=== PATIENT | male | born 1990 | race Caucasian/White ===

== ENCOUNTER 2020-01-21 18:50 | Emergency (ER) | payer BC, SELFPAY ==
[2020-01-21 19:02] VITALS: BP 132/81; PULSE 112; RESP 20; TEMP 36.7; O2SAT 99
--- NOTE | 2020-01-21 19:12 | ED.GENADULT ---
HPI - General Adult General Chief complaint: Ear Stated complaint: Ear pain in both ears Time Seen by Provider: 01/21/20 19:12 Source: patient and RN notes reviewed Mode of arrival: ambulatory Limitations: no limitations History of Present Illness HPI narrative: 29-year-old male presents with complaints of bilateral ear tenderness, itching, and drainage and sore throat for the past 4 days. Ibuprofen, last today @ 17:30 with some relief. Denies swimming or getting water into ear. Denies trouble hearing. PND, rhinorrhea, and congestion. Sore throat bilateral. Hurts to swallow. No voice changes. No drooling, neck or throat swelling. No high fevers or chills. Denies injury to the ear. No nasal drainage and congestion. Denies nausea, vomiting, tinnitus, and dizziness. Remains active. Some parts of this dictation were generated by voice recognition software and may contain typographical and/or grammatical inaccuracies. Related Data Allergies Allergy/AdvReac Type Severity Reaction Status Date / Time No Known Allergies Allergy Verified 01/21/20 19:05 Review of Systems Review of Systems: Narrative: CONSTITUTIONAL: Denies fever, chills, sweats. EYES: Denies visual changes, redness, discharge. ENT: Complains of rhinorrhea, congestion, sore throat otalgia, bilateral ear pain, itching, drainage feeling. CARDIOVASCULAR: Denies chest pain, palpitations, edema. RESPIRATORY: Denies dyspnea, wheezing, cough. GASTROINTESTINAL: Denies abdominal pain, nausea, vomiting, diarrhea. GENITOURINARY: Denies dysuria, hematuria, abnormal discharge. SKIN: Denies rash or itching. MUSCULOSKELETAL: Denies acute back pain, joint pain, or myalgia. NEUROLOGIC: Denies numbness or focal weakness. PSYCHIATRIC: Denies anxiety or depression. All systems reviewed & are unremarkable except as noted in HPI and below. [facility] Past Medical History Medical History (Updated 01/22/20 @ 00:00 by Nazanin Vásquez) Anxiety Kidney stone Surgical History Surgical History (Updated 01/21/20 @ 19:19 by BRIDGETTE Villaseñor) No significant past surgical history Family History Family History (Updated 01/21/20 @ 19:20 by BRIDGETTE Villaseñor) Mother Depression Social History Social History (Updated 01/21/20 @ 19:21 by BRIDGETTE Villaseñor) Smoking packs per day: 0.75 Smoking cigarettes per day: 15.0 Years smoked: 15 Smoking pack-years: 11.25 Smoking status: Current every day smoker Tobacco type: cigarettes Second hand tobacco smoke exposure: Yes Alcohol intake: never Substance use: current Substance use type: marijuana Living arrangements: with family Occupation/Education: unemployed Gender identity (if verbalized by the patient): Male Comments At time of signature, I have reviewed and agree with nursing past medical, surgical, social, and family history. Please see nursing chart for further information. There is no relevant family history pertinent to the presenting complaint. Exam Narrative: Exam Narrative: GENERAL: This is a well-nourished, well-developed patient, in no apparent distress. Talks in full sentences and ambulates with steady gait without dyspnea HEAD: normocephalic, atraumatic. EYES: PERRL. Sclera clear/white. Vision is grossly intact. EARS: Pinna is normal shape and contour. RT ear with moderate swollen canal with moderate yellow purulent discharge and tenderness with manipulation. LT TM pearly winn with good cone of light, no erythema or suppuration, unable to visualize RT TM due to swelling and drainage. No gross hearing deficit. NOSE: External nose normal with no obvious nasal discharge, nares with mild-moderate redness and enlarge turbinates, left worse. Clear rhinorrhea. THROAT: Mucous membranes moist, posterior pharynx clear. NECK: Neck supple, non-tender without lymphadenopathy, masses or thyromegaly. CARDIOVASCULAR: Regular rate and rhythm without murmurs, gallops, or rubs. RESPIRATORY
[2020-01-21 19:25] VITALS: PULSE 88
== END 2020-01-21 19:30 | disposition home or self-care (01) ==
PROVIDERS: Emergency Provider Nurse Practitioner Family; PCP Internal Medicine
DX: H60.391 Other infective otitis externa, right ear (principal); F17.210 Nicotine dependence, cigarettes, uncomplicated
CPT/HCPCS: 99203; G0463

== ENCOUNTER 2023-02-12 16:59 | Emergency (ER) | payer BC, SELFPAY ==
--- NOTE | ~2023-02-12 | CT_ITS ---
EXAMINATION: CT brain wo con DATE: 02/12/2023 17:52 INDICATION: AMS, hallucinations . TECHNIQUE: Computed tomography (CT) of the head was performed without intravenous contrast. The mA wa s adjusted according to patient size. Iterative reconstruction technique was employed. The dose-lengt h product was 605.33 mGy-cm. COMPARISON: None. FINDINGS: No acute intracranial hemorrhage or extra-axial fluid collection. No hydrocephalus, mass, or herniation. No acute ischemic infarct. Unremarkable dural venous sinus attenuation. No acute osseous abnormality. The aerated spaces are clear. IMPRESSION: No acute intracranial process. Reviewed, dictated and finalized at location K.
[2023-02-12 17:13] VITALS: BP 126/82; PULSE 119; RESP 20; TEMP 37.1; O2SAT 99
[2023-02-12 17:30] LABS: Basophils Percent Auto 0.2 % (0.2-1.2); Eosinophils Percent Auto 0.9 % (0-4.4); Immature Granulocyte Absolute 0.01 K/mm3 (0.00-0.031); Immature Granulocyte Percent A 0.2 % (0-0.5); Lymphocytes Absolute Auto 1.09 K/mm3 (0.9-3.2); Lymphocytes Percent Auto 23.5 % (18.3-44.2); Mean Corpuscular HGB Conc 34.2 g/dl (32-36); Mean Corpuscular Hemoglobin 31.4 pg (26-34); Mean Corpuscular Volume 91.8 fl (80-100); Mean Platelet Volume 9.9 fl (7.4-10.4); Monocytes Absolute Auto 0.5 K/mm3 (0.1-0.6); Monocytes Percent Auto 10.2 % (2.6-8.5); Platelet Count Result 198 k/mm3 (150-375); Red Blood Count 4.14 M/mm3 (4.6-6.20); Red Cell Distribution Width 12.3 % (11.5-14.5); White Blood Count 4.6 K/mm3 (4.5-10.0)
[2023-02-12 17:34] LABS: Appearance Urine Clear (Clear); Bacteria Urine None Seen /hpf; Bilirubin Urine Negative (Negative); Blood Urine Negative (Negative); Color Urine Yellow (Yellow); Glucose Urine UA Negative (Negative); Ketones Urine Negative (Negative); Leukocyte Esterase Ur Negative LEU/UL (Negative); Nitrate Urine Negative (Negative); Non Pathogenic Casts 0-2; Protein Urine 1+ mg/dL (Negative); RBC Urine 0-2 /hpf (0-2); Squamous Epithelial Cell Urine None seen /hpf (Few); WBC Urine 0-5 /hpf; pH Urine 5.5 (5.0-9.0)
[2023-02-12 17:36] LABS: Add Urine Microscopic? YES
--- NOTE | 2023-02-12 17:37 | ED.PSYCH ---
HPI - Psych General Chief Complaint: Psychiatric Symptoms Stated Complaint: psychiatric problems Time Seen by Provider: 02/12/23 17:03 Source: patient and police Mode of arrival: other (PD) Limitations: clinical condition History of Present Illness HPI Narrative: Patient is a 33 y/o male who presents to the ED via PD with report of hallucinations. Per PD, patient was acting erratically at a bus stop and reportedly fighting with inanimate objects. The business intelligence analyst called for PD. Patient reported to PD that the frequencies from the cars that were passing by were telling him to do things. He states he has been hearing voices for the last couple of months. He states he recognizes that the voices are not his own. He states the voices come from over the car frequencies, the rubber meeting the road, or from satellites. He states occasionally the voices are nice and uplifting, other times tell him to harm his children, or if he does not do what they wish, his children will be harmed. Patient does have 2 children that are currently with her mothers. Patient is currently homeless. He states he has been homeless since last March. He states he has had suicidal thoughts in the last 1 month and has thought about jumping off a bridge in [place]. He states he got up to the edge, but was not able to go through with it. He states he has previously been diagnosed with depression and anxiety, but is not currently on any medications. He was last psychiatrically hospitalized in 2010. Patient admits to smoking cigarettes and marijuana, denies other drug or EtOH use. Related Data Home Medications Medication Instructions Recorded Confirmed hydroxyzine HCl 25 mg tablet mg 02/12/23 mirtazapine 15 mg tablet mg 02/12/23 Allergies Allergy/AdvReac Type Severity Reaction Status Date / Time No Known Allergies Allergy Verified 02/12/23 17:25 Review of Systems Review of Systems: CONSTITUTIONAL: Denies fever, chills, or sweats. EYES: Denies visual changes. CARDIOVASCULAR: Denies chest pain. RESPIRATORY: Denies dyspnea. GASTROINTESTINAL: Denies abdominal pain, nausea, vomiting. MUSCULOSKELETAL: Denies back pain, joint pain, or myalgia. NEUROLOGIC: Denies headache, numbness, or weakness. PSYCHIATRIC: See HPI. All systems reviewed & are unremarkable except as noted in HPI and below PMFSH Past Medical History Medical History (Updated 02/13/23 @ 00:01 by Background Daemon) Anxiety Depression Kidney stone Surgical History Surgical History No significant past surgical history Family History Family History Mother Depression Social History Social History Smoking packs per day: 0.75 Smoking cigarettes per day: 15.0 Years smoked: 15 Smoking pack-years: 11.25 Smoking status: Current every day smoker Tobacco type: cigarettes Second hand tobacco smoke exposure: Yes Alcohol intake: never Substance use: current Substance use type: former substance user and methamphetamine Living arrangements: with family Occupation/Education: unemployed Gender identity (if verbalized by the patient): Male Exam Narrative: GENERAL: Mildly unkempt, non-toxic, in no acute distress. HEAD: Normocephalic, atraumatic. NECK: Supple. No adenopathy, no masses. RESPIRATORY: Airway patent, respirations nonlabored. Clear to auscultation bilaterally, no rales, rhonchi, wheezing. CARDIOVASCULAR: Tachycardic with regular rhythm without murmurs, rubs, or gallops. Peripheral pulses 2+ and equal bilaterally. ABDOMINAL: Soft, nontender, nondistended, no hepatosplenomegaly. Normoactive BS. MUSCULOSKELETAL: Moves all extremities. Strength/ROM intact without gross deformities. SKIN: Warm, dry, normal color. No rashes. NEURO: A&O X3. Speech clear. Cranial nerves II-XII grossly in
[2023-02-12 17:42] LABS: Alanine Aminotransferase 32 U/L (6-50); Albumin Level 4.5 g/dL (3.5-5.1); Alkaline Phosphatase 69 U/L (38-126); Anion Gap 5 mmol/L (8-16); Aspartate Amino Transferase 47 U/L (17-59); Bilirubin,Total 0.5 mg/dL (0.2-1.3); Blood Urea Nitrogen 18 mg/dL (9-20); Calcium 8.9 mg/dL (8.4-10.2); Carbon Dioxide 30 mmol/L (22-30); Chloride 105 mmol/L (98-107); Estimated CRCL calculation 121 ml/min; Estimated Glomerular Filt Rate > 60; Glucose 86 mg/dL (65-110); Potassium 4.3 mmol/L (3.4-5.0); Sodium 140 mmol/L (137-145)
[2023-02-12 17:43] LABS: Acetaminophen < 10 ug/mL (10-30); Ethanol < 10 mg/dL (<10); Salicylate < 1.0 mg/dL (2-20)
[2023-02-12 17:47] LABS: Amphetamine Screen Urine Negative (Negative); Barbiturate Screen Urine Negative (Negative); Benzodiazepines Screen Urine Negative (Negative); Cannabinoid Screen Urine Positive (Negative); Cocaine Screen Urine Negative (Negative); Methadone Screen Urine Negative (Negative); Opiate Screen Urine Negative (Negative); Phencyclidine Screen Urine Negative (Negative)
[2023-02-12 18:15] LABS: SARS-CoV-2 RNA PCR Negative
--- NOTE | 2023-02-12 18:22 | PC.NURSE ---
crisis called to evaluate patient
--- NOTE | 2023-02-12 20:13 | PC.NURSE ---
crisis arrived at 1920 to evaluate patient.
--- NOTE | 2023-02-12 20:18 | PC.NURSE ---
spoke with crisis who have decided that they are going to write up a safety plan for the patient.
[2023-02-12] MEDS: HYDROGEN PEROXIDE 3% SOLN(*SP) 473 ML BOTTLE (20:43)
[2023-02-12 20:56] VITALS: BP 124/68; PULSE 80; RESP 14; O2SAT 97
== END 2023-02-12 20:57 | disposition home or self-care (01) ==
PROVIDERS: Emergency Provider Physician Assistant; PCP Internal Medicine
DX: R44.0 Auditory hallucinations (principal); Z59.00 Homelessness unspecified; F41.9 Anxiety disorder, unspecified; F32.A Depression, unspecified; F17.210 Nicotine dependence, cigarettes, uncomplicated; Z20.822 Contact with and (suspected) exposure to COVID-19
CPT/HCPCS: 36415; 70450; 80053; 80307; 81001; 84443; 85025; 99284; A9270; U0003; U0005

== ENCOUNTER 2023-02-13 05:42 | Emergency (ER) | payer BC, SELFPAY ==
[2023-02-13 05:45] VITALS: BP 129/73; PULSE 100; RESP 18; TEMP 36.2; O2SAT 99
[2023-02-13 05:50] VITALS: BP 145/81; PULSE 94; RESP 17; TEMP 36.6; O2SAT 97
[2023-02-13 05:54] VITALS: BP 145/81; PULSE 67; RESP 19; O2SAT 96
[2023-02-13 06:01] VITALS: BP 137/72; PULSE 72; RESP 19; O2SAT 97
[2023-02-13 06:31] VITALS: BP 138/85; PULSE 78; RESP 18; O2SAT 98
--- NOTE | 2023-02-13 07:52 | ED.GENADULT ---
HPI - General Adult General Chief complaint: Extremity Problem,Nontraumatic Stated complaint: foot pain Time Seen by Provider: 02/13/23 07:02 History of Present Illness HPI narrative: Patient is a 33-year-old male who presents ER with complaint of left foot discomfort and rash. Ongoing for years but worsening over the last 6 months. Has not had any medication. Reports she is applied peroxide without improvement. No fevers or chills or sweats. No known injury or trauma. Patient recently seen in ER for mental health evaluation. No complaints at this time. Related Data Home Medications Medication Instructions Recorded Confirmed hydroxyzine HCl 25 mg tablet mg 02/12/23 mirtazapine 15 mg tablet mg 02/12/23 Allergies Allergy/AdvReac Type Severity Reaction Status Date / Time No Known Allergies Allergy Verified 02/13/23 05:54 Review of Systems Constitutional: Constitutional: Denies chills and Denies fever(s) Integumentary/Breasts: Skin/Breast: Reports pruritus, Reports erythema and Reports rash Psychiatric: Psychiatric: Denies homicidal ideation and Denies suicidal ideation [facility] Past Medical History Medical History (Updated 02/13/23 @ 07:54 by Grabiel Dillard MD) Anxiety Depression Kidney stone Surgical History Surgical History No significant past surgical history Family History Family History Mother Depression Social History Social History Smoking packs per day: 0.75 Smoking cigarettes per day: 15.0 Years smoked: 15 Smoking pack-years: 11.25 Smoking status: Current every day smoker Tobacco type: cigarettes Second hand tobacco smoke exposure: Yes Alcohol intake: never Substance use: current Substance use type: former substance user and methamphetamine Living arrangements: with family Occupation/Education: unemployed Gender identity (if verbalized by the patient): Male Exam Narrative: GENERAL: Well-appearing, well-nourished, and in no acute distress. HEAD: Normocephalic, atraumatic. ENT: Mucous membranes moist. CHEST: Clear to auscultation. No respiratory distress. HEART: Regular rate and rhythm. Normal peripheral pulses. EXTREMITIES: Normal range of motion. No edema. SKIN: Warm, dry. Left foot with mild redness and sloughing of skin over the lateral aspect of the foot as well as the toes and medial aspect of the foot. Is not hot. Does not represent cellulitis. Seems consistent with tinea infection. Over the lateral foot there is a bit of a fissure from chronic infection that is healing. No drainage. Small abrasion right buttock less than 1 cm in diameter. NEURO: Alert and oriented x3. PSYCH: Normal mood and affect. Course Course Emergency Course: Discussed diagnosis and treatment plan with patient who verbalized understanding. Also discussed results of the foot x-ray. Lastly I discussed patient's previous visit for mental health and the resources he received. She reports she has had a good spot at this time. He does not require homeless resources either. Vital Signs Vital signs: Vital Signs Temperature 97.2 F L 02/13/23 05:45 Pulse Rate 100 02/13/23 05:45 Respiratory Rate 18 02/13/23 05:45 Blood Pressure 129/73 02/13/23 05:45 Pulse Oximetry 99 02/13/23 05:45 Oxygen Delivery Room Air 02/13/23 05:45 Temperature 97.9 F 02/13/23 05:50 Pulse Rate 78 02/13/23 06:31 Respiratory Rate 18 02/13/23 06:31 Blood Pressure 138/85 02/13/23 06:31 Pulse Oximetry 98 02/13/23 06:31 Oxygen Delivery Room Air 02/13/23 05:45 Medical Decision Making Vital Signs Vital Signs: Vital Signs Temperature 97.2 F L 02/13/23 05:45 Pulse Rate 100 02/13/23 05:45 Respiratory Rate 18 02/13/23 05:45 Blood Pressure 129/73 02/13/23 05:45 Pu
== END 2023-02-13 06:31 | disposition home or self-care (01) ==
PROVIDERS: Emergency Provider Emergency Medicine; PCP Internal Medicine
DX: B35.3 Tinea pedis (principal); F41.9 Anxiety disorder, unspecified; F32.A Depression, unspecified; F17.210 Nicotine dependence, cigarettes, uncomplicated; Z87.442 Personal history of urinary calculi
CPT/HCPCS: 73630; 99283

== ENCOUNTER 2023-09-27 10:06 | Emergency (ER) | payer BC, SELFPAY ==
[2023-09-27 10:26] VITALS: BP 115/77; PULSE 93; RESP 16; TEMP 36.6; O2SAT 99
--- NOTE | 2023-09-27 10:59 | ED.EYEPROB ---
HPI - Eye Problem General Chief complaint: Eye Problems Stated complaint: eye problem Time Seen by Provider: 09/27/23 10:44 History of Present Illness HPI Narrative: 33-year-old male who presented to the emergency department for evaluation of red and the left lateral eye. Patient states he is taking oxycodone has been having some issues with constipation. Patient states last night he was bearing down hard for a bowel movement when he noticed the redness in the eye. Patient denies any associated nausea vomiting or abdominal pain. Patient denies any change in vision. Patient is not on any blood thinners. Related Data Home Medications Medication Instructions Recorded Confirmed mirtazapine 15 mg tablet mg 02/12/23 Remeron 09/27/23 09/27/23 buprenorphine 8 mg-naloxone 2 mg film 09/27/23 sublingual film olanzapine 10 mg tablet mg 09/27/23 Allergies Allergy/AdvReac Type Severity Reaction Status Date / Time No Known Allergies Allergy Verified 09/27/23 10:07 Review of Systems Review of Systems: All systems reviewed & are unremarkable except as noted in HPI and below PMFSH Past Medical History Medical History (Updated 09/28/23 @ 00:00 by Nazanin Vásquez) Anxiety Depression Kidney stone Surgical History Surgical History No significant past surgical history Family History Family History Mother Depression Social History Social History Smoking packs per day: 0.75 Smoking cigarettes per day: 15.0 Years smoked: 15 Smoking pack-years: 11.25 Smoking status: Current every day smoker Tobacco type: cigarettes Second hand tobacco smoke exposure: Yes Alcohol intake: never Substance use: current Substance use type: former substance user and methamphetamine Living arrangements: with family Occupation/Education: unemployed Gender identity (if verbalized by the patient): Male Exam Narrative: APPEARANCE: Well appearing, no pain, no distress, well-nourished. HEAD: normocephalic, atraumatic. EYES: subconjunctival hemorrhage on the left lateral eye, normal fundic exam, normal visual cochran NOSE: Normal no drainage EARS:TMS clear with good light reflex. THROAT: Pharynx clear, no exudate. NECK: Supple. No adenopathy, no masses. RESPIRATORY: Airway patent, respirations nonlabored. Clear to auscultation bilaterally, no rales, rhonchi, wheezing. CARDIOVASCULAR: Regular rate and rhythm without murmurs rubs or gallops. ABDOMINAL: Soft, nontender, nondistended, normal bowel sounds MUSCULOSKELETAL: Moves all extremities. Strength/ROM intact, No edema, No calf tenderness. NEURO: Alert. Cranial nerves II through XII intact. Grossly intact SKIN: Warm, dry. Normal Color Course Course Emergency Course: 33-year-old male with a subconjunctival hemorrhage present in the ED for evaluation. Patient was advised on treatment. All questions concerns were addressed. Vital Signs Vital signs: Vital Signs Temperature 97.8 F 09/27/23 10:26 Pulse Rate 93 09/27/23 10:26 Respiratory Rate 16 09/27/23 10:26 Blood Pressure 115/77 09/27/23 10:26 Pulse Oximetry 99 09/27/23 10:26 Oxygen Delivery Room Air 09/27/23 10:26 Temperature 97.8 F 09/27/23 10:26 Pulse Rate 93 09/27/23 10:26 Respiratory Rate 16 09/27/23 10:26 Blood Pressure 115/77 09/27/23 10:26 Pulse Oximetry 99 09/27/23 10:26 Oxygen Delivery Room Air 09/27/23 10:26 MDM - Eye Problem Differential Diagnosis Differential diagnosis: Likely corneal abrasion, conjunctivitis, acute iritis, hyphema, periorbital cellulitis, subconjunctival hemorrhage, corneal ulcer and ruptured globe Discharge Plan Discharge Clinical Impression: Subconjunctival hemorrhage, Constipation Patient Disposition: Home, Self-Care Cond
[2023-09-27] MEDS: polyethylene glycoL 3350 17 GM POWD.PACK PO (11:20)
== END 2023-09-27 11:24 | disposition home or self-care (01) ==
PROVIDERS: Emergency Provider Emergency Medicine; PCP Internal Medicine
DX: H11.32 Conjunctival hemorrhage, left eye (principal); K59.00 Constipation, unspecified; F41.9 Anxiety disorder, unspecified; F32.A Depression, unspecified; F17.210 Nicotine dependence, cigarettes, uncomplicated; Z87.440 Personal history of urinary (tract) infections
CPT/HCPCS: 99283

== ENCOUNTER 2023-10-14 19:46 | Emergency (ER) | payer BC, SELFPAY ==
[2023-10-14 20:37] VITALS: BP 148/88; PULSE 108; RESP 16; TEMP 36.3; O2SAT 99
--- NOTE | 2023-10-14 21:45 | ED.GENADULT ---
HPI - General Adult General Chief complaint: Unspecified Stated complaint: constipation Time Seen by Provider: 10/14/23 21:25 Source: patient Mode of arrival: ambulatory Limitations: no limitations History of Present Illness HPI narrative: This is a 33-year-old male who presents to the ED with chief complaint of constipation x several weeks. reports that this has been a problem ever since starting on Suboxone. He has tried intermittent MiraLax and milk of magnesia with no relief. Reports his last bowel movement was last night in the past a stool the size of his fist that was very hard and compact. Reports a little bit of blood without bowel movement. Denies any bowel movements today. Reports he was straining sore today than popped a vessel in his eyes. Denies nausea, vomiting, fevers, chills, diarrhea, abdominal pain. Related Data Home Medications Medication Instructions Recorded Confirmed mirtazapine 15 mg tablet mg 02/12/23 Remeron 09/27/23 09/27/23 buprenorphine 8 mg-naloxone 2 mg film 09/27/23 sublingual film olanzapine 10 mg tablet mg 09/27/23 Allergies Allergy/AdvReac Type Severity Reaction Status Date / Time No Known Allergies Allergy Verified 09/27/23 10:07 Review of Systems Review of Systems: All systems as dictated in [facility] Past Medical History Medical History (Updated 10/15/23 @ 00:00 by Nazanin Vásquez) Anxiety Depression Kidney stone Surgical History Surgical History No significant past surgical history Family History Family History Mother Depression Social History Social History Smoking packs per day: 0.75 Smoking cigarettes per day: 15.0 Years smoked: 15 Smoking pack-years: 11.25 Smoking status: Current every day smoker Tobacco type: cigarettes Second hand tobacco smoke exposure: Yes Alcohol intake: never Substance use: current Substance use type: former substance user and methamphetamine Living arrangements: with family Occupation/Education: unemployed Gender identity (if verbalized by the patient): Male Exam Narrative: GENERAL: Well-appearing, well-nourished, and in no acute distress. HEAD: Normocephalic, atraumatic. EYES: PERRLA and EOMI. ENT: Nares clear, no rhinorrhea or epistaxis. Mucous membranes moist. Oropharynx without tonsillar hypertrophy exudate or other lesions. NECK: Supple. No adenopathy or masses. CHEST: No respiratory distress. Clear to auscultation. No wheezes rales or rhonchi HEART: Regular rate and rhythm. No murmur heard. Normal peripheral pulses. ABDOMEN: Soft, nontender, nondistended, normal active bowel sounds. MSK: Normal range of motion. No edema. SKIN: Warm, dry, no rash. NEURO: Alert and oriented x3. No focal deficits. PSYCH: Normal mood and affect. Course Vital Signs Vital signs: Vital Signs Temperature 97.4 F L 10/14/23 20:37 Pulse Rate 108 H 10/14/23 20:37 Respiratory Rate 16 10/14/23 20:37 Blood Pressure 148/88 H 10/14/23 20:37 Pulse Oximetry 99 10/14/23 20:37 Oxygen Delivery Room Air 10/14/23 20:37 Temperature 97.4 F L 10/14/23 20:37 Pulse Rate 64 10/14/23 22:16 Respiratory Rate 15 10/14/23 22:16 Blood Pressure 148/88 H 10/14/23 20:37 Pulse Oximetry 100 10/14/23 22:16 Oxygen Delivery Room Air 10/14/23 20:37 Medical Decision Making MDM Narrative Medical decision making narrative: This is a 33-year-old male who presents to the ED for chief complaint of constipation. He is currently on Suboxone. Vitals are normal. Exam is benign. No evidence of acute abdomen. He is requesting alternative regimen to MiraLax for constipation. He has been straining quite hard and has very infrequent. He reports a little bit of pain in the rectum at times, but
[2023-10-14 22:16] VITALS: PULSE 64; RESP 15; O2SAT 100
== END 2023-10-14 22:19 | disposition home or self-care (01) ==
PROVIDERS: Emergency Provider Physician Assistant; PCP Internal Medicine
DX: K59.00 Constipation, unspecified (principal); F17.210 Nicotine dependence, cigarettes, uncomplicated
CPT/HCPCS: 99283

== ENCOUNTER 2024-04-07 18:35 | Emergency (ER) | payer OTHER, SELFPAY ==
--- NOTE | ~2024-04-07 | CT_ITS ---
EXAMINATION: CT brain wo con DATE: 04/07/2024 20:31 INDICATION: auditory hallucinations, headaches . TECHNIQUE: Computed tomography (CT) of the head was performed without intravenous contrast. The mA wa s adjusted according to patient size. Iterative reconstruction technique was employed. The dose-lengt h product was 681.00 mGy-cm. COMPARISON: 02/12/2023. FINDINGS: No acute intracranial hemorrhage or extra-axial fluid collection. No hydrocephalus, mass, or herniation. No acute ischemic infarct. Unremarkable dural venous sinus attenuation. No acute osseous abnormality. The aerated spaces are clear. IMPRESSION: No acute intracranial process. Reviewed, dictated and finalized at location K.
[2024-04-07 18:36] VITALS: BP 126/60; PULSE 83; RESP 15; TEMP 36.4; O2SAT 99
[2024-04-07 19:51] LABS: Basophils Percent Auto 0.5 % (0.2-1.2); Eosinophils Percent Auto 0.5 % (0-4.4); Hematocrit 39.5 % (42.0-52.0); Hemoglobin 13.8 g/dL (14.0-18.0); Immature Granulocyte Absolute 0.01 K/mm3 (0.00-0.031); Immature Granulocyte Percent A 0.2 % (0-0.5); Lymphocytes Percent Auto 32.9 % (18.3-44.2); Mean Corpuscular HGB Conc 34.9 g/dl (32-36); Mean Corpuscular Hemoglobin 31.3 pg (26-34); Mean Corpuscular Volume 89.6 fl (80-100); Mean Platelet Volume 9.9 fl (7.4-10.4); Monocytes Absolute Auto 0.3 K/mm3 (0.1-0.6); Monocytes Percent Auto 7.3 % (2.6-8.5); Neutrophils Absolute Auto 2.5 K/mm3 (1.3-6.7); Neutrophils Percent Auto 58.6 % (45.5-73.1); Platelet Count Result 181 k/mm3 (150-375); Red Blood Count 4.41 M/mm3 (4.6-6.20); Red Cell Distribution Width 13.6 % (11.5-14.5); White Blood Count 4.3 K/mm3 (4.5-10.0)
[2024-04-07 19:57] LABS: Appearance Urine Clear (Clear); Bilirubin Urine Negative (Negative); Blood Urine Negative (Negative); Color Urine Yellow (Yellow); Glucose Urine UA Negative (Negative); Ketones Urine Trace mg/dL (Negative); Leukocyte Esterase Ur Negative LEU/UL (Negative); Nitrate Urine Negative (Negative); Protein Urine Negative (Negative); Specific Grav Ur 1.029 (1.001-1.035); Urobilinogen Urine 0.2 mg/dL (<2.0); pH Urine 5.5 (5.0-9.0)
[2024-04-07 20:00] LABS: Add Urine Microscopic? NO
[2024-04-07 20:03] LABS: Ethanol < 10 mg/dL (<10)
[2024-04-07 20:06] LABS: Alanine Aminotransferase 18 U/L (6-50); Alkaline Phosphatase 50 U/L (38-126); Anion Gap 7 mmol/L (4-12); Aspartate Amino Transferase 19 U/L (17-59); Bilirubin,Total 0.5 mg/dL (0.2-1.3); Blood Urea Nitrogen 8 mg/dL (9-20); Calcium 9.1 mg/dL (8.4-10.2); Carbon Dioxide 26 mmol/L (22-30); Chloride 108 mmol/L (98-107); Estimated CRCL calculation 124 ml/min; Estimated Glomerular Filt Rate > 60; Glucose 131 mg/dL (65-110); Potassium 3.8 mmol/L (3.4-5.0); Sodium 141 mmol/L (137-145)
[2024-04-07 20:16] LABS: Amphetamine Screen Urine Negative (Negative); Barbiturate Screen Urine Negative (Negative); Benzodiazepines Screen Urine Negative (Negative); Cannabinoid Screen Urine Positive (Negative); Cocaine Screen Urine Negative (Negative); Methadone Screen Urine Negative (Negative); Opiate Screen Urine Negative (Negative); Phencyclidine Screen Urine Negative (Negative)
[2024-04-07 20:34] LABS: Thyroid Stimulating Hormone Reflex 0.921 uIU/mL (0.465-4.68)
[2024-04-07] MEDS: ACETAMINOPHEN 500 MG TABLET 1000 MG PO (20:45)
--- NOTE | 2024-04-07 21:07 | ED.PSYCH ---
HPI - Psych General Chief Complaint: Psychiatric Symptoms <ARIS Burrows Last Filed: 04/08/24 01:23> Stated Complaint: hearing voices <ARIS Burrows Last Filed: 04/08/24 01:23> Time Seen by Provider: 04/07/24 19:49 <ARIS Burrows Last Filed: 04/08/24 01:23> Source: patient and old records reviewed <ARIS Burrows Last Filed: 04/08/24 01:23> Mode of arrival: ambulatory <ARIS Burrows Filed: 04/08/24 01:23> Limitations: no limitations <ARIS Burrows Filed: 04/08/24 01:23> History of Present Illness HPI Narrative: Patient is a 34-year-old male who presents the ED with report of auditory hallucinations. Patient reports he has been dealing with hallucinations for the last 9 years, but states they have been more severe over the last 3 months. He states it feels like a constant commentary in his mind, like a movie is playing in his mind. He states the voices are typically negative and make him feel overwhelmed. He states they occasionally tell him to do things, but more so perform tasks. They do not tell him to harm himself or anyone else. Patient denies suicidal or homicidal ideation currently. States he just wants help and wants the voices to stop. Patient states he has a diagnosis of delusional disorder. Denies diagnosis of schizophrenia. Has been hospitalized for psychiatric reasons prior. Not currently on any psychiatric medications. He is homeless for the last 2 years. Denies drug or alcohol use. <ARIS Burrows Last Filed: 04/08/24 01:23> Related Data Home Medications: Home Medications Medication Instructions Recorded Confirmed mirtazapine 15 mg tablet mg 02/12/23 Remeron 09/27/23 09/27/23 buprenorphine 8 mg-naloxone 2 mg film 09/27/23 sublingual film olanzapine 10 mg tablet mg 09/27/23 <ARIS Burrows Last Filed: 04/08/24 01:23> Allergies/Adverse Reactions: Allergies Allergy/AdvReac Type Severity Reaction Status Date / Time No Known Allergies Allergy Verified 09/27/23 10:07 <Marnie Maria PA-C - Last Filed: 04/08/24 01:23> Review of Systems Review of Systems: CONSTITUTIONAL: Denies fever, chills, or sweats. NEUROLOGIC: Denies headache, dizziness, numbness, or weakness. PSYCHIATRIC: See HPI <Marnie Maria PA-C - Last Filed: 04/08/24 01:23> All systems reviewed & are unremarkable except as noted in HPI and below <Marnie Maria PA-C - Last Filed: 04/08/24 01:23> PMFSH Past Medical History Medical History: Medical History Anxiety Depression Kidney stone <Marnie Maria PA-C - Last Filed: 04/08/24 01:23> Surgical History Surgical History: Surgical History No significant past surgical history <Marnie Maria PA-C - Last Filed: 04/08/24 01:23> Family History Family History: Family History Mother Depression <Marnie Maria PA-C - Last Filed: 04/08/24 01:23> Social History Social History: Social History Smoking packs per day: 0.75 Smoking cigarettes per day: 15.0 Years smoked: 15 Smoking pack-years: 11.25 Smoking status: Current every day smoker Tobacco type: cigarettes Second hand tobacco smoke exposure: Yes Alcohol intake: never Substance use: current Substance use type: marijuana Living arrangements: with family Occupation/Education: unemployed Gender identity (if verbalized by the patient): Male <Marnie Maria PA-C - Last Filed: 04/08/24 01:23> Exam Narrative: GENERAL: Well appearing, well-nourished, non-toxic, in no acute distress. HEAD: Normoceph
[2024-04-07 21:12] LABS: Influenza A QL RT-PCR Negative (Negative); Influenza B QL RT-PCR Negative (Negative); RSV RNA, RT-PCR Negative (Negative); SARS-CoV-2 RNA PCR Negative (Negative)
[2024-04-07 23:38] LABS: Acetaminophen < 10 ug/mL (10-30); Salicylate < 1.0 mg/dL (2-20)
--- NOTE | 2024-04-07 23:48 | PC.NURSE ---
[facility] faxed updated voluntary form, covid, tylenol, salicylate levels.
--- NOTE | 2024-04-07 23:52 | PC.NURSE ---
[place] updated with nurse to nurse report
--- NOTE | 2024-04-07 23:54 | PC.NURSE ---
pt verbalized that he does not currently take any medications everyday.
[2024-04-07 23:55] VITALS: BP 114/83; PULSE 85; RESP 14; TEMP 36.8; O2SAT 98
--- NOTE | 2024-04-08 00:04 | PC.NURSE ---
Grabiel at [facility] able to accept Billy crum NP . Nurse to Nurse given to JAI Spain. May arrive after 10am. Call Back # [phone] ext 1 intake.
--- NOTE | 2024-04-08 00:27 | PC.NURSE ---
Dr Collins @ [facility] will accept the patient. Nurse from [facility] will call to get nurse to nurse shortly per Deanna [phone]
[2024-04-08 01:17] VITALS: PULSE 85; RESP 14; O2SAT 98
--- NOTE | 2024-04-08 01:18 | PC.NURSE ---
RN Report given to JAI Raines @ [facility] [phone]
--- NOTE | 2024-04-08 01:35 | PC.NURSE ---
Antonino updated that patient accepted at [facility] and we would be sending him there instead.
--- NOTE | 2024-04-08 03:50 | PC.NURSE ---
Report given to [facility] for transport to [facility].
== END 2024-04-08 03:53 ==
PROVIDERS: Student in an Organized Health Care Education/Training Program; Emergency Provider Physician Assistant; PCP Internal Medicine
DX: R44.0 Auditory hallucinations (principal); Z11.52 Encounter for screening for COVID-19; F41.9 Anxiety disorder, unspecified; F32.A Depression, unspecified; F17.210 Nicotine dependence, cigarettes, uncomplicated; Z87.442 Personal history of urinary calculi; Z79.899 Other long term (current) drug therapy
CPT/HCPCS: 36415; 70450; 80053; 80307; 81003; 84443; 85025; 87637; 99285; A9270

== ENCOUNTER 2024-07-02 08:37 | Emergency (ER) | payer OTHER, SELFPAY ==
[2024-07-02 08:50] VITALS: BP 136/69; PULSE 118; RESP 20; TEMP 36.8; O2SAT 98
--- NOTE | 2024-07-02 09:18 | ED.DENTAL ---
HPI - Dental/Oral General Chief complaint: Dental/Oral Stated complaint: roof of mouth pain Time Seen by Provider: 07/02/24 09:18 Source: patient, RN notes reviewed and old records reviewed Mode of arrival: ambulatory Limitations: no limitations History of Present Illness HPI Narrative: 34-year-old male presents to the [facility] with pain to the roof of his mouth/ right upper gum. Patient was treated approximately 1 month ago at another urgent care for a dental abscess. States it did get better after treatment but did return. Patient with very poor dentition. States it returned 2 nights ago. Reports that he has an appointment with a dentist in August, [facility] Location: Tooth # (3,4,5) Treatment prior to arrival: none Related Data Allergies Allergy/AdvReac Type Severity Reaction Status Date / Time No Known Allergies Allergy Verified 07/02/24 09:00 Review of Systems Review of Systems: All systems reviewed & are unremarkable except as noted in HPI and below Constitutional: Constitutional: Reports no additional constitutional complaints Eyes: Eyes: Reports no additional eye complaints ENT: Reports as per HPI and Reports dental pain Cardiovascular: Cardiovascular: Reports no additional cardiovascular complaints, Denies chest pain and Denies dyspnea Respiratory: Respiratory: Reports no additional respiratory complaints, Denies chest congestion, Denies cough and Denies dyspnea Gastrointestinal: Gastrointestinal: Reports no additional gastrointestinal complaints, Denies abdominal pain, Denies nausea and Denies vomiting Musculoskeletal: Musculoskeletal: Reports no additional musculoskeletal complaints Integumentary/Breasts: Skin/Breast: Reports system reviewed and no additional complaints, except as docu Neurologic: Reports system reviewed and no additional complaints, except as documented Psychiatric: Psychiatric: Reports no additional psychiatric complaints Allergic/Immunologic: Allergic/Immunologic: Reports no additional allergic/immunologic complaints [facility] Past Medical History Medical History Anxiety Depression Kidney stone Surgical History Surgical History No significant past surgical history Family History Family History Mother Depression Social History Social History Smoking packs per day: 0.75 Smoking cigarettes per day: 15.0 Years smoked: 15 Smoking pack-years: 11.25 Smoking status: Current every day smoker Tobacco type: cigarettes Second hand tobacco smoke exposure: Yes Alcohol intake: never Substance use: current Substance use type: marijuana Living arrangements: with family Occupation/Education: unemployed Gender identity (if verbalized by the patient): Male Comments At the time of my signature, I reviewed and agree with the nursing past medical, surgical, social, and family history. There is no relevant family history pertinent to the patient complaint. Exam Const: General: cooperative, healthy appearing, comfortable, no acute distress, well developed, alert and well nourished Nutritional Appearance: well nourished Orientation/consciousness: patient oriented x3 Limitations: no limitations HENMT: Head: normal to inspection Ears: hearing grossly normal bilaterally, external ears normal, TM's normal bilaterally, EAC's normal, mastoids normal and no periauricular adenopathy Face/Nose/Sinus: Normal external nose present, Normal nares present, Normal nasal mucous membranes and turbinates present, normal facial exam and face symmetric Face and sinus: normal facial exam and face symmetric Mouth: Yes lip normal and Yes tongue normal Teeth and gingiva: abnormal tooth and associated gingiva upper right second molar tender, with associated gingiva
== END 2024-07-02 09:35 | disposition home or self-care (01) ==
PROVIDERS: Emergency Provider Nurse Practitioner; PCP Internal Medicine
DX: K04.7 Periapical abscess without sinus (principal); F17.210 Nicotine dependence, cigarettes, uncomplicated
CPT/HCPCS: 99213; G0463

== ENCOUNTER 2024-09-25 21:27 | Emergency (ER) | payer OTHER, SELFPAY ==
[2024-09-25 21:30] VITALS: BP 155/81; PULSE 94; RESP 18; TEMP 36.4; O2SAT 100
[2024-09-26 00:03] VITALS: BP 150/78; PULSE 92; RESP 17; TEMP 36.6; O2SAT 100
[2024-09-26] MEDS: IBUPROFEN 400 MG TABLET 800 MG PO (00:18)
[2024-09-26] MEDS: HYDROcodone/acetaminophen (*CRX) 5-325 MG TABLET 1 TAB PO (00:18)
[2024-09-26] MEDS: AMOXICILLIN/CLAVULANATE K 875-125 MG TAB 1 TABLET PO (00:18)
--- NOTE | 2024-09-26 00:24 | ED.DENTAL ---
HPI - Dental/Oral General Chief complaint: Dental/Oral Stated complaint: tooth abcess Time Seen by Provider: 09/25/24 23:07 Source: patient Mode of arrival: ambulatory Limitations: no limitations History of Present Illness HPI Narrative: Patient is a 34-year-old male who presents the ED with report of left upper dental pain. Patient has diffuse dental disease and states he was scheduled to have his all of his teeth extracted last week but his dentist had to reschedule. He does not have an appointment now until January. Over the last few days, patient has had increased pain over his left upper gum line, around teeth 11 and 12. He notes that tooth 12 broke last week. Reports having some swelling into his left facial cheek. Denies difficulty swallowing or breathing. Denies fevers. Related Data Allergies Allergy/AdvReac Type Severity Reaction Status Date / Time No Known Allergies Allergy Verified 09/25/24 21:28 Review of Systems Review of Systems: All systems reviewed & are unremarkable except as noted in HPI. All systems reviewed & are unremarkable except as noted in HPI and below PMFSH Past Medical History Medical History Anxiety Depression Kidney stone Surgical History Surgical History No significant past surgical history Family History Family History Mother Depression Social History Social History Smoking packs per day: 0.75 Smoking cigarettes per day: 15.0 Years smoked: 15 Smoking pack-years: 11.25 Smoking status: Current every day smoker Tobacco type: cigarettes Second hand tobacco smoke exposure: Yes Alcohol intake: never Substance use: current Substance use type: marijuana Living arrangements: with family Occupation/Education: unemployed Gender identity (if verbalized by the patient): Male Exam Narrative: GENERAL: Mildly uncomfortable appearing, well-nourished, non-toxic, in no acute distress. HEAD: Normocephalic, atraumatic. ENT: Diffuse dental decay, several teeth are eroded down to gumline. Scattered dental caries. Moderate tenderness to palpation along upper gumline surrounding teeth #11/12. No focal fluctuance or areas of abscess. Mild swelling over left lower maxillary region. No trismus or stridor. Maintaining secretions. RESPIRATORY: Airway patent, respirations nonlabored. CARDIOVASCULAR: Regular rate and rhythm MUSCULOSKELETAL: Moves all extremities. No gross deformities. SKIN: Warm, dry, normal color. NEURO: A&O X3. Speech clear. PSYCHIATRIC: Appropriate mood and affect. Normal interaction. Course Vital Signs Vital signs: Vital Signs Temperature 97.6 F 09/25/24 21:30 Pulse Rate 94 09/25/24 21:30 Respiratory Rate 18 09/25/24 21:30 Blood Pressure 155/81 H 09/25/24 21:30 Pulse Oximetry 100 09/25/24 21:30 Oxygen Delivery Room Air 09/25/24 21:30 Temperature 97.8 F 09/26/24 00:03 Pulse Rate 92 09/26/24 00:03 Respiratory Rate 17 09/26/24 00:03 Blood Pressure 150/78 H 09/26/24 00:03 Pulse Oximetry 100 09/26/24 00:03 Oxygen Delivery Room Air 09/26/24 00:03 MDM - Dental/Oral MDM Narrative Medical decision making narrative: Patient's pain is consistent with dental caries/dental infection. There are no focal signs of space-occupying abscess. The patient is controlling secretions well without signs of airway compromise. Patient is felt reasonable for outpatient follow-up with dental evaluation. Advised to follow closely with dentist. Given list of dentists for follow-up. Will discharge on Augmentin. Will give short course of pain medicine for home use. Given strict return precautions. He agrees w/ plan. D/C in stable condition. Medical Records Attestation: I reviewed the patient's medical records. Discharge Plan Discharge Clinical Impression: Dental caries, Dental infection Fracture of tooth Qualifiers: Encounter type: initial encounter Fracture type: closed Qualified Code(s): S02.5XXA - Fracture of tooth (traumatic), initial encounter for closed fracture Patient Disposition: Home, Self-Care Condition: Stable Instructions: Antibiotic Form, Dental Abscess (ED), Toothache (ED) Additional Instructions: Take antibiotics as prescribed. Stay well hydrated. Continue Tylenol and ibuprofen as needed for pain. [place] as needed for more severe pain. Follow-up with dentist for further evaluation. Return to the ED if you experience worsening or severe symptoms, difficulty breathing or swallowing, unable to keep down food or drink, or any other symptoms of concern. Prescriptions: New hydrocodone-acetaminophen 5-325 mg tablet 1 tablet PO Q6H PRN (Reason: pain) Qty: 10 0RF amoxicillin-pot clavulanate 875-125 mg tablet 1 tablet PO Q12H 7 Days Qty: 14 0RF No Action clindamycin HCl 300 mg capsule 300 mg PO TID 10 Days Qty: 30 0RF ibuprofen 600 mg tablet 600 mg PO TID PRN (Reason: fever or pain) Qty: 30 0RF Follow-up/Referrals: Jigna,Grabiel Triana MD [Primary Care Provider] - Time of Disposition: 00:27
== END 2024-09-26 00:36 | disposition home or self-care (01) ==
PROVIDERS: Emergency Provider Physician Assistant; PCP Internal Medicine
DX: K04.7 Periapical abscess without sinus (principal); K02.9 Dental caries, unspecified; K03.81 Cracked tooth; F17.210 Nicotine dependence, cigarettes, uncomplicated; Z87.442 Personal history of urinary calculi
CPT/HCPCS: 99283; A9270

== ENCOUNTER 2025-01-12 14:40 | Emergency (ER) | payer OTHER, SELFPAY ==
[2025-01-12 14:48] VITALS: BP 147/77; PULSE 96; RESP 18; TEMP 36.4; O2SAT 99
--- NOTE | 2025-01-12 15:07 | ED_ITS ---
HPI - URI/Sore Throat General Chief Complaint: Upper Respiratory Infection Stated Complaint: Mouth Sore/Fever/Chills/Ear Pain Source: patient, RN notes reviewed and old records reviewed Mode of arrival: ambulatory Limitations: no limitations Related Data Home Medications ?Medication ?Instructions ?Recorded ?Confirmed ?Last Taken ?Type albuterol sulfate 90 mcg/actuation inhalation 01/12/25 Unknown History aerosol inhaler Allergies Allergy/AdvReac Type Severity Reaction Status Date / Time No Known Allergies Allergy Verified 01/12/25 15:02 Review of Systems Review of Systems: CONSTITUTIONAL: Denies fever, chills, or sweats. EYES: Denies visual changes, redness, or discharge. ENT: Denies rhinorrhea, congestion, sore throat, or otalgia. CARDIOVASCULAR: Denies chest pain, palpitations, or edema. RESPIRATORY: Denies cough or dyspnea. GASTROINTESTINAL: Denies abdominal pain, nausea, vomiting, or diarrhea. GENITOURINARY: Denies dysuria or hematuria. SKIN: Denies rash or itching. MUSCULOSKELETAL: Denies back pain, joint pain, or myalgia. NEUROLOGIC: Denies headache, numbness, or weakness. PSYCHIATRIC: Denies anxiety or depression. All systems reviewed & are unremarkable except as noted in HPI and below PMFSH Past Medical History Medical History Anxiety Depression Kidney stone Surgical History Surgical History No significant past surgical history Family History Family History Mother Depression Social History Social History Smoking packs per day: 0.75 Smoking cigarettes per day: 15.0 Years smoked: 15 Smoking pack-years: 11.25 Smoking status: Current every day smoker Tobacco type: cigarettes Second hand tobacco smoke exposure: Yes Alcohol intake: never Substance use: current Substance use type: marijuana Living arrangements: with family Occupation/Education: unemployed Gender identity (if verbalized by the patient): Male Comments At time of signature, agree with nursing past medical, surgical, social and family history. There is no relevant family history pertinent to the presenting complaint Exam Narrative: GENERAL: Well-appearing, well-nourished, and in no acute distress. HEAD: Normocephalic, atraumatic. EYES: PERRLA and EOMI. ENT: Nares clear, no rhinorrhea or epistaxis. Mucous membranes moist. NECK: Supple. CHEST: Clear to auscultation. No respiratory distress. HEART: Regular rate and rhythm. No murmur heard. Normal peripheral pulses. ABDOMEN: Soft, nontender, nondistended, normal active bowel sounds. EXTREMITIES: Normal range of motion. No edema. SKIN: Warm, dry, no rash. NEURO: No focal deficits. Alert and oriented x3. Course Course Emergency Course: Patient is aware of diagnosis, understands and agrees to treatment plan.? Anticipatory guidance given.? Patient agrees to follow-up as directed and is aware of reasons to seek care at the emergency department. Portions of this record may have been created with voice recognition software Level of Care: Express Care Visit Vital Signs Vital signs: Vital Signs Temperature 36.4 C L 01/12/25 14:48 Pulse Rate 96 01/12/25 14:48 Respiratory Rate 18 01/12/25 14:48 Blood Pressure 147/77 H 01/12/25 14:48 Pulse Oximetry 99 01/12/25 14:48 Oxygen Delivery Room Air 01/12/25 14:48 Temperature 36.4 C L 01/12/25 14:48 Pulse Rate 96 01/12/25 14:48 Respiratory Rate 18 01/12/25 14:48 Blood Pressure 147/77 H 01/12/25 14:48 Pulse Oximetry 99 01/12/25 14:48 Oxygen Delivery Room Air 01/12/25 14:48 Reviewed Discharge Plan Discharge Clinical Impression: Upper respiratory infection, Abscess, dental Patient Disposition: Home, Self-Care Condition: Stable Instructions: Antibiotic Form, Dental Abscess (ED), Upper Respiratory Infection (ED) Additional Instructions: Increase fluids especially juices and water [id number] cough and cold medicine of your choice for your symptoms Viscous lidocaine swish and swallow for pain Continue your inhaler/nebulizer as directed heat to the face 20-30 minutes 4-6 times a day for pain Salt water gargles, throat lozenges or throat sprays as desired Antibiotic as directed--finished the medication If your symptoms persist, change or worsen significantly before you can contact your personal physician then please, without delay, go to the emergency department for further evaluation. Follow-up with PCP in 7-10 days or sooner if needed Follow up with PCP soon in regards to your blood pressure which is elevated above threshold for referral. Blood pressure above 120/80 may indicate pre- hypertension. Follow-up with your dentist at your 16 of January appointment Stop smoking Patient Language: Salvadorean Prescriptions: New penicillin V potassium 500 mg tablet 500 mg PO Q12H 10 Days Qty: 20 0RF lidocaine HCl [Lidocaine Viscous] 2 % solution 1 applic mucous membrane QID PRN (Reason: pain) Qty: 100 0RF Rx Instructions: Apply to gums using a Q-tip to 4 times daily ibuprofen 600 mg tablet 600 mg PO TID PRN (Reason: fever or pain) Qty: 30 0RF No Action albuterol sulfate 90 mcg/actuation HFA aerosol inhaler INHALATION Follow-up/Referrals: PHYSICIAN,PRIMARY CLASS TEACHER [Primary Care Provider] - Time of Disposition: 15:19 Quality Jannette Coma Scale Eyes: Open Verbal: Oriented and Alert Motor: Follows Commands [place] Coma Total Score: 15
--- OUTSIDE RECORDS SUMMARY | 2025-01-12 16:37 | XMS_ITS | Patient Health Record ---
Author Organization [facility] Address [address] [place] [address] Care Team Providers Care Media Services Specialist Name Role Phone Ananya Fairchild Primary Care Provider Allergies Allergen (clinical drug ingredient) Drug/Non Drug Allergy documented on EMR Reaction Allergy Type Onset Date Status grapefruit (uncoded) hives Allergy Active Reason For Referral No Information Medications Medication SIG (Take, Route, Frequency, Duration) Notes Start Date End Date Status buPROPion HCl ER (XL) 300 MG 1 tablet in the morning Orally Once a day for 30 days Active OLANZapine 10 MG 0.5 tablet x 7 days then 1 tablet Orally Once a day for 30 days 10/23/2023 Active Multivitamin - 1 tablet Orally Once a day Active Nicotine Lozenge 4mg 4 MG 1 lozenge ever y hour as needed Mouth/Throat up to 15 time(s) a day Active Mirtazapine 15 MG 1 tablet Orally at bedtime for 30 days Active hydrOXYzine Pamoate 50 MG 1 capsule by m outh twice a day as needed for 15 days Active busPIRone HCl 30 MG 1 tablet Orally Twic e a day for 30 days Active Buprenorphine HCl-Naloxone HCl 8-2 mg DISSOLVE 1 FILM UNDER THE TONGUE TWICE A DAY for 14 10/16/2023 Active Social History Tobacco Use: Social History Observation Description Date Details (start date - stop date) Current Smoker NA - NA Sex Assigned At : Social History Observation Description Sex Assigned At Male Dont use, Tobacco Use/Smoking Question Answer Notes Are you a current smoker Additional Findings: Tobacco User Moderate cigar ette smoker (10-19 cigs/day) Problems Problem Type SNOMED Code ICD Code Onset Dates Problem Status W/U Status Risk Notes Problem Tobacco user (806656264) Nicotine dependence, unspecified, uncomplicated (F17.200) Active confirmed Problem Anxiety disorder (277370178) Anxiety disorder, unspecified (F41.9) 09/17/20 Active confirmed Problem Hallucinations (3401479) Hallucinations, unspecified (R44.3) 09/17/20 Active confirmed Problem Bipolar 1 disorder (817380002) Bipolar 1 disorder (F31.9) 09/17/20 Active confirmed Problem Generalized anxiety disorder (19435581) ALANA (generalized anxiety disorder) (F41.1) Active confirmed Problem Major depression in partial remission (03432966) Major depression in partial remission (F32.4) Active confirmed Problem Constipation (57675176) Constipation (K59.00) Active confirmed Problem Insomnia due to mental disorder (34014244) Insomnia due to mental disorder (F51.05) 10/23/20 Active confirmed Problem Disorder caused by stimulant (disorder) (127405673) Stimulant use disorder (F15.90) 09/17/20 Active confirmed Problem Adjustment disorder (21626413) Trauma and stressor-related disorder (F43.9) 08/06/20 Active confirmed Problem Tobacco use (935315473) Tobacco use disorder (F17.200) Active confirmed Problem Mental disorder caused by drug (842240233) Opioid use disorder (F11.99) Active confirmed Problem Intravenous drug user (861895239) Intravenous drug user (F19.90) Active confirmed History of IV drug in past 12 months - not recent Problem Nondependent cannabis abuse (385354993) Cannabis use disorder (F12.90) 08/06/20 Active confirmed Plan Of Treatment Future Test Test Name Order Date Vitamin B12* 02/27/2023 CBC With Differential/Platelet* 02/28/20 Hepatitis B Surface Antigen (HBsAg Scree n) 02/27/2023 Hepatitis B Surf Ab Quant* 02/27/2023 Vitamin D, 25-Hydroxy* 02/27/2023 TSH+Free T4* 02/27/2023 [id number] 02/27/2023 Lipid Panel* 02/27/2023 HIV-1, Quantitative, Real-time PCR 02/27 Hepatitis C Virus (HCV) Genotyping, Nonr eflex 02/27/2023 Insurance Providers Payer Name Payer Address Payer Phone Subscriber Number Group Number Insured Name Patient Relationship to Insured Coverage Start Date Coverage End Date Next 1 [employer] [address] [place] [address] [id number] Naveen Mcfadden Self - patient is the insured 4 [facility] [address] [place] [address] [address] [place] [address] [id number] Naveen Mcfadden Self - patient is the insured 3 3 [facility] [address] [place] [address] [address] [place] [address] [id number] Naveen Mcfadden Self - patient is the insured 3 3 [employer] [address] [place] [address] [id number] Naveen Mcfadden Self - patient is the insured 4 Medical (General) History Medical History History ICD Code ADD (attention deficit disorder) F90.0 Depression F32.9 Psychosis F29 Anxiety F41.9 Concussion S06.0X9A Surgical History Surgery Date(Month/Year) Hospitalization History Reason Date(Month/Year) [place] for panic attacks 09/2023 hearing voices 07/2023 mental health concerns 02/2023 suicide attempt 2004 and 2010 foot issues inpatient stay 09/2023
--- OUTSIDE RECORDS SUMMARY | 2025-01-12 16:37 | XMS_ITS ---
Author Organization [facility] Address [address] [place] [address] Care Team Providers Care Lighthouse Keeper Name Role Phone Ananya Fairchild Primary Care Provider Allergies Allergen (clinical drug ingredient) Drug/Non Drug Allergy documented on EMR Reaction Allergy Type Onset Date Status grapefruit (uncoded) hives Allergy Active REASON FOR VISIT on MRU 1 wk follow up Medications Medication SIG (Take, Route, Frequency, Duration) Notes Start Date End Date Status Multivitamin - 1 tablet Orally Once a day Active Nicotine Lozenge 4mg 4 MG 1 lozenge ever y hour as needed Mouth/Throat up to 15 time(s) a day Active Buprenorphine HCl-Naloxone HCl 8-2 mg DISSOLVE 1 FILM UNDER THE TONGUE TWICE A DAY for 14 10/16/2023 Active OLANZapine 10 MG 0.5 tablet x 7 days then 1 tablet Orally Once a day for 30 days 10/23/2023 Active Mirtazapine 15 MG 1 tablet Orally at bedtime for 30 days Active hydrOXYzine Pamoate 50 MG 1 capsule by m outh twice a day as needed for 15 days Active busPIRone HCl 30 MG 1 tablet Orally Twic e a day for 30 days Active buPROPion HCl ER (XL) 300 MG 1 tablet in the morning Orally Once a day for 30 days Active Social History Tobacco Use: Social History [...] Problem Status W/U Status Risk Notes Problem Insomnia due to mental disorder ([id number]) Insomnia due to mental disorder (F51.05) 10/23/2023 Active confirmed Encounters Encounter Location Date Provider Diagnosis Formerly [facility] [address] [address] 10/23/2023 Ananya Fairchild Stimulant use disorder F15.90 ; Trauma and stressor-related disorder F43.9 ; Major depression in partial remission F32.4 ; ALANA (generalized anxiety disorder) F41.1 ; Hallucinations, unspecified R44.3 ; 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 and Opioid use disorder F11.99 Assessments Encounter Date Diagnosis (ICD Code) Assessment Notes Treatment Notes Treatment Clinical Notes Section Notes 10/23/2023 Stimulant use disorder (ICD-10 - F15.90) Currently on CRU 10/23/2023 Trauma and stressor-relate d disorder (ICD-10 - F43.9) prescribed Remeron & Wellbutrin, doesn't want therapy services at this time 10/23/2023 Major depression in partial remission (ICD-10 - F32.4) 10/23/2023 ALANA (generalized anxiety disorder) (ICD-10 - F41.1) 10/23/2023 Hallucinations, unspecified (ICD-10 - R44.3) 10/23/2023 Insomnia due to mental disorder (ICD-10 - F51.05) 10/23/2023 Opioid use disorder (ICD-10 - F11.99) History: Psychiatric inpatient stays, last time Jul for AH. AH appear possibly related to meth use or depression. Hx of trialing Abilify (didn't like), Invega (some improvement), Wellbutrin (some improvement), Remeron (for insomnia, helpful). Reports hx of diagnosis to include ADHD in and taking Ritalin/Adderall. Has a counselor, unclear if they have therapy sessions. Hx of trauma and trauma sx to include possible dissociative episodes. Recently on CRU, currently on MRU for 28 days. Pt is presently homeless. On housing list. Grief sx - recent deaths. Today's visit: Patient is a 33-year-old male who presents for a psychiatric follow-up appointment over Zoom while on MRU.Previously seen on 10/16/23 and during this appt he was increased on Invega from 3 to 6 mg for AH. He is also presently prescribed Buspirone 20 mg BID, hydroxyzine 25 mg as needed, Wellbutrin 300 mg and Remeron 15 mg. Pt continues to express depressive thoughts and some symptoms, PHQ-9 is score of a 3 from today and does not reflect what patient is saying during appt. Pt reports minimal to no improvement in symptoms since medication changes, reports worsening anxiety and feeling weird on increase Invega. Reported AH appears related to his own depressive/negativ e thinking today, will continue to consider possibility of AH related to depression.Symptom s being further complicated by his worry of being homeless and grief related to recent deaths. He is agreeable to switching back to Zyprexa 10 mg and discontinuing Invega as he found Zyprexa helpful although caused some weight gain- he would like to restart. Will consider transitioning pt to another antidepressant during next appt over Wellbutrin. He does not wish to engage in therapy services presently. Will continue to encourage starting individual therapy after treatment for anxiety coping skills along with hx of trauma. No acute safety concerns at the time of this appointment.Pt was provided an opportunity to ask questions and is in agreement with treatment plan. May self-administer medications or be administered own oral medications per [facility] protocols. Provided informed consent with understanding of side effects, adverse effects, risks and benefits as well as alternative treatments as previously discussed and with the above recommended medications & other aspects of the treatment program. Agrees to return sooner if symptoms worsen or suicidal or homicidal ideations occur. Plan Of Treatment Medication Medication Name Sig Start Date Stop Date Notes OLANZapine 10 MG 0.5 tablet x 7 days then 1 tablet Orally Once a day for 30 days 10/23/2023 Paliperidone ER 6 MG 1 tablet Orally in the morning for 30 days Mirtazapine 15 MG 1 tablet Orally at b edtime for 30 days hydrOXYzine Pamoate 50 MG 1 capsule by m outh twice a day as needed for 15 days busPIRone HCl 30 MG 1 tablet Orally Twic e a day for 30 days buPROPion HCl ER (XL) 300 MG 1 tablet in the morning Orally Once a day for 30 days Treatment Notes Assessment Notes Stimulant use disorder Currently on CRU Trauma and stressor-related disorder pre scribed Remeron & Wellbutrin, doesn't want therapy services at this time Opioid use disorder History: Psychiatric inpatient stays, last time Sept for AH. AH appear possibly related to meth use or depression. Hx of trialing Abilify (didn't like), Invega (some improvement), Wellbutrin (some improvement), Remeron (for insomnia, helpful). Reports hx of diagnosis to include ADHD in and taking Ritalin/Adderall. Has a counselor, unclear if they have therapy sessions. Hx of trauma and trauma sx to include possible dissociative episodes. Recently on CRU, currently on MRU for 28 days. Pt is presently homeless. On housing list. Grief sx - recent deaths. Today's visit: Patient is a 33-year-old male who presents for a psychiatric follow-up appointment over Zoom while on MRU.Previously seen on 10/16/23 and during this appt he was increased on Invega from 3 to 6 mg for AH. He is also presently prescribed Buspirone 20 mg BID, hydroxyzine 25 mg as needed, Wellbutrin 300 mg and Remeron 15 mg. Pt continues to express depressive thoughts and some symptoms, PHQ-9 is score of a 3 from today and does not reflect what patient is saying during appt. Pt reports minimal to no improvement in symptoms since medication changes, reports worsening anxiety and feeling weird on increase Invega. Reported AH appears related to his own depressive/negative thinking today, will continue to consider possibility of AH related to depression.Symptoms being further complicated by his worry of being homeless and grief related to recent deaths. He is agreeable to switching back to Zyprexa 10 mg and discontinuing Invega as he found Zyprexa helpful although caused some weight gain- he would like to restart. Will consider transitioning pt to another antidepressant during next appt over Wellbutrin. He does not wish to engage in therapy services presently. Will continue to encourage starting individual therapy after treatment for anxiety coping skills along with hx of trauma. No acute safety concerns at the time of this appointment.Pt was provided an opportunity to ask questions and is in agreement with treatment plan. May self-administer medications or be administered own oral medications per [facility] protocols. Provided informed consent with understanding of side effects, adverse effects, risks and benefits as well as alternative treatments as previously discussed and with the above recommended medications & other aspects of the treatment program. Agrees to return sooner if symptoms worsen or suicidal or homicidal ideations occur. Next Appt Details Follow Up: 2 Weeks, Reason: medication f/u Progress Notes * Naveen AGUIARDOB:1990 ( 33 yo M)Acc No.[id number]:10/23/2023 Patient: Naveen CASTANEDA Provider: JESU Hernandez :1990 A ge:33 Y S ex:Male Date:10/23/2023 Address:[place] [address] Subjective: * Chief Complaints: * o n MRU 1 wk follow up * HPI: P sych F/U: Changes since last visit?: States I'm ready to go, it's time ,states not quite sure yet where her is going, I think [facility]. S tates sinceswitching to the Invega 6 mg makes me feel weird' having spurts of anxiety , it'sa weird feeling . States the Invega is helping with the hallucinations, but Scott hear things still but I'm managing it . States he may want to switch backto the Zyprexa, I think it may be a better option . Previously was takingZyprexa, Ill try it . L ast time hearinga voice was earlier and the voice was saying please don't give up on me . Depressionhas been pretty bad, maybe it's today, it's hard to explain. I fluctuate .Having a hard time paying attention due to a flood of thoughts, I feel like I'mnot able to be present in the moment, in my head . Looking forward to beingmore functioning . Anxiety been really bad but then calm spots where I feelgood . Reports hydroxyzine somewhat helpful, I don't take it very often . StatesRemeron for sleep I wake up in the middle of the night . Estimates sleeping 4hours a night. States doesn't want a referral for therapy right now, I don't know . Denies any SI/HI. . D epression Screening: PHQ-9 L ittle interest or pleasure in doing things?Not at all F eeling down, depressed, or hopeless S everal days T rouble falling or staying asleep, or sleeping too much S ever F eeling tired or having little energy N ot at all P oor appetite or overeating N ot at all F eeling bad about yourself or that you are a failure, or have let yourself or your family down N ot at all T rouble concentrating on things, such as reading the newspaper or watching television S M oving or speaking so slowly that other people could have noticed; or the opposite, being so fidgety or restless that you have been moving around a lot more than usual N ot at all T houghts that you would be better off or of hurting yourself in some way N ot at all T otal Score 3 I nterpretation M inimal Depression S creening: Smith Suicide Severity Rating Scale (LF) D o you want to initiate with S creener form 1 . Wish to be : Have you wished you were or wished you could go to sleep and not wake up? N o 2 . Suicidal Thoughts: Have you actually had any thoughts of killing yourself? N o 6 . Suicide Behaviour: Have you ever done anything,started to do anything, or prepared to end your life? N o P reventative Health and Wellness follow-up: . C SSRS Interpretation and Follow Up Plan: CSSRS Interpretation and Follow Up Plan. CSSRS Interpretation and Follow Up Plan M oderate or High risk requires selection of a follow up plan C SSRS No/Low: intervention not needed at this time * ROS: P sych ROS: Constitutional A ll systems negative unless indicated otherwise. E yes D enies. E ars/Nose/Mouth/Throat D enies. R espiratory D enies problems, Denies asthma or COPD. A llergic/Immunologic D enies. C ardiovascular D enies problems, Denies blood relative experiencing sudden at young age. G I D enies problems, Denies liver problems. G U D enies renal problems.. M usculoskeletal D enies tics, tremors, or abnormal movements, Denies problems. N eurological D enies history of seizures, Denies concern. I ntegumentary D enies rashes or pruritis. E ndocrine D enies concern, Denies DM or thyroid dysfunction. H ematological/Lymphatic D enies bleeding or bruising, Denies problems. * Medical History: * Surgical History: D enies Past Surgical History * Hospitalization/Major Diagno stic Procedure: M H inpatient stay 09/2023foot issues suicide attempt 2004 and 2010mental health concerns 02/2023hearing voices ateway for panic attacks 09/2023 * Family History: F ather: alive, diagnosed with Depression. M other: alive, diagnosed with Depression. 2 brother(s) - healthy. 2 daughter(s) - healthy. . * Social History: P rimary Social History: L iving Arrangement L iving Arrangement: H omeless I s this a supportive environment? N o Alcohol Use A lcohol Use Frequency: M onthly or less Illicit Substance Usage I llicit Substance Usage: Y es Attempting recovery with frequent relapses on cocaine, crack cocaine, meth, and Subozone S ubstance Used: C annabis, Cocaine, Crack, Methamphetamine, Prescription Drugs F requency Cannabis is used: d aily 1 gram smoked F requency Cocaine is used: s mall amounts, 4 times snorted in past 12 mos. (from 02/27/23) F requency Crack is used: u sed one time 7 mos ago (from 02/27/23) F requency Methamphetamine is used: U sed twice in past two years (from 02/27/23) F requency prescription drugs are abused: U sed either 1 mg or 2 mg of Suboxone in 02/2023 I nterested in quitting: Y es Employment Status E mployment Status: U nemployed Tobacco Use T obacco Use: S tatus Reviewed with Patient smokes 10 cigarettes daily T obacco Use Status Reviewed on: 0 02/27/2023 Leisure: Plays guitar, go to museums, festivals, likes walking in natures, interested in fashion. T obacco Use: T obacco Use/Smoking A re you a c urrent smoker A dditional Findings: Tobacco User M oderate cigarette smoker (10-19 cigs/day) * Medications: T akingbuPROPion HCl ER (XL) 300 MG Tablet Extended Release 24 Hour 1 tablet in the morning Orally Once a day busPIRone HCl 30 MG Tablet 1 tablet Orally Twice a day hydrOXYzine Pamoate 25 MG Capsule 2 capsules by mouth every 4 hour hours as needed Mirtazapine 15 MG Tablet 1 tablet Orally at bedtime Paliperidone ER 6 MG Tablet Extended Release 24 Hour 1 tablet Orally in the morning Nicotine Lozenge 4mg 4 MG Lozenge 1 lozenge every hour as needed Mouth/Throat up to 15 time(s) a day Multivitamin - Tablet 1 tablet Orally Once a day Buprenorphine HCl-Naloxone HCl 8-2 mg Film DISSOLVE 1 FILM UNDER THE TONGUE TWICE A DAY Taking buPROPion HCl ER (XL) 300 MG Tablet Extended Release 24 Hour 1 tablet in the morning Orally Once a day Taking busPIRone HCl 30 MG Tablet 1 tablet Orally Twice a day Taking hydrOXYzine Pamoate 25 MG Capsule 2 capsules by mouth every 4 hour hours as needed Taking Mirtazapine 15 MG Tablet 1 tablet Orally at bedtime Taking Paliperidone ER 6 MG Tablet Extended Release 24 Hour 1 tablet Orally in the morning Taking Nicotine Lozenge 4mg 4 MG Lozenge 1 lozenge every hour as needed Mouth/Throat up to 15 time(s) a day Taking Multivitamin - Tablet 1 tablet Orally Once a day Taking Buprenorphine HCl-Naloxone HCl 8-2 mg Film DISSOLVE 1 FILM UNDER THE TONGUE TWICE A DAY DiscontinuedPaliperidone ER 3 MG Tablet Extended Release 24 Hour 1 tablet in the morning Orally Once a day buPROPion HCl ER (XL) 300 mg Tablet Extended Release 24 Hour TAKE 1 TABLET BY MOUTH EVERY MORNING Medication List reviewed and reconciled with the patientDiscontinued Paliperidone ER 3 MG Tablet Extended Release 24 Hour 1 tablet in the morning Orally Once a day Discontinued buPROPion HCl ER (XL) 300 mg Tablet Extended Release 24 Hour TAKE 1 TABLET BY MOUTH EVERY MORNING Medication List reviewed and reconciled with the patient * Allergies: g rapefruit: hives - Criticality Unknownno[Allergies Verified] Objective: * Vitals: I nitials: LY, Pain scale:0. * Examination: M ental Status Exam: SENSORIUM AND COGNITION A lert, A&OX4. ATTENTION AND CONCENTRATION N o deficits. APPEARANCE A ppropriate. ATTITUDE AND BEHAVIOR C ooperative. MEMORY A dequate. EYE CONTACT G ood. AFFECT R estricted, sad. MOOD D ysthymic, worried. SPEECH QUANTITY A ppropriate. SPEECH QUALITY S pontaneous , soft v olume. THOUGHT PROCESS C oherent and goal directed. THOUGHT CONTENT No evidence of delusional content , No reports of paranoia. LANGUAGE A ppropriate - WDL. MOTOR ACTIVITY , No abnormal movements or tics noted. SUICIDAL IDEATION D enies SI or thoughts of self harm. HOMICIDAL IDEATION D enies homicidal ideation or thoughts of aggression. HALLUCINATIONS R eports AH of negative voice, does not appear to be responding to internal stimuli or seeing hallucinations in the room. INSIGHT A dequate. JUDGMENT A dequate. FUND OF KNOWLEDGE A dequate. ABILITY TO PARTICIPATE IN TREATMENT A dequate. WILLINGNESS TO PARTICIPATE IN TREATMENT A dequate. ? Assessment: * Assessment: 1. S timulant use disorder - F15.90 (Primary), Methamphetamine 2 . T rauma and stressor-related disorder - F43.9 3 . M ajor depression in partial remission - F32.4 4 . G AD (generalized anxiety disorder) - F41.1 5 . H allucinations, unspecified - R44.3 6 . Insomnia due to mental disorder - F51.05 7 . O pioid use disorder - F11.99 Plan: * Treatment: 2. T rauma and stressor-related disorder Notes: prescribed Remeron & Wellbutrin, doesn't want therapy services at this time 3. M samor depression in partial remission Continue buPROPion HCl ER (XL) Tablet Extended Release 24 Hour, 300 MG, 1 tablet in the morning, Orally, Once a day, 30 days, 30 Tablet, Refills 0. 4. G AD (generalized anxiety disorder) Continue busPIRone HCl Tablet, 30 MG, 1 tablet, Orally, Twice a day, 30 days, 60 Tablet, Refills 0;?Refill hydrOXYzine Pamoate Capsule, 50 MG, 1 capsule, by mouth, twice a day as needed, 15 days, 30, Refills 0. 5. H allucinations, unspecified Stop Paliperidone ER Tablet Extended Release 24 Hour, 6 MG, 1 tablet, Orally, in the morning, 30 days, 30; S tart OLANZapine Tablet, 10 MG, 0.5 tablet x 7 days then 1 tablet, Orally, Once a day, 30 days, 25, Refills 0. 6. I nsomnia due to mental disorder Continue Mirtazapine Tablet, 15 MG, 1 tablet, Orally, at bedtime, 30 days, 30, Refills 0. ? 7. O pioid use disorder Notes:History:Psychiatric inpatient stays, last time Sept for AH. AH appear possibly related to meth use or depression. Hx of trialing Abilify (didn't like), Invega (some improvement), Wellbutrin (some improvement), Remeron (for insomnia, helpful). Reports hx of diagnosis to include ADHD in and taking Ritalin/Adderall. Has a counselor, unclear if they have therapy sessions. Hx of trauma and trauma sx to include possible dissociative episodes. Recently on CRU, currently on MRU for 28 days.Pt is presently homeless.On housing list. Grief sx - recent deaths. Today's visit:Patientis a 33-year-old male who presents for a psychiatric follow-up appointment over Zoom while on MRU.Previously seen on 10/16/23 and during this appthe was increased on Invega from 3 to 6 mg for AH. He is also presentlyprescribed Buspirone 20 mg BID, hydroxyzine 25 mg as needed, Wellbutrin 300 mgand Remeron 15 mg. Pt continues to express depressive thoughts and some symptoms, PHQ-9 is score of a 3 from today and does not reflect what patient is saying during appt. Pt reports minimal to no improvement in symptoms since medication changes, reports worsening anxiety and feeling weird on increase Invega. Reported AH appears related to his own depressive/negative thinking today, will continue to consider possibility of AH related to depression.Symptoms being further complicated by his worry of being homeless and grief related to recent deaths. He is agreeable to switching back to Zyprexa 10 mg and discontinuing Invega as he found Zyprexa helpful although caused some weight gain- he would like to restart. Will consider transitioning pt to another antidepressant during next appt over Wellbutrin. He does not wish to engage in therapy services presently. Will continue to encourage starting individual therapy after treatment for anxiety coping skills along with hx of trauma. No acute safety concerns at the time of this appointment.Pt was provided an opportunity to ask questions and is in agreement with treatment plan. May self-administer medications didier administered own oral medications per [facility] protocols. Provided informedconsent with understanding of side effects, adverse effects, risks and benefitsas well as alternative treatments as previously discussed and with the aboverecommended medications & other aspects of the treatment program. Agrees toreturn sooner if symptoms worsen or suicidal or homicidal ideations occur. * Recommended Wellness and Pre vention Guidelines: * S tatus A lert L ast Done N ext Due A ction Taken N ONCOMPLIANT A lcohol use screening - 1 12/24/2022 - * Procedure Codes: * Follow Up: 2 Weeks (Reason: medication f/u) * * OPERATOR Sign off status: Completed true * Provider: Aidan Fairchild, PMHNP Date: 1 12/24/2022 Generated for Luisi carlos/Deisy/eTransmitting on: 0 01/12/2025 04:36 PM CDT History and Physical Notes * HPI (History of Present Illness) Category Sub-Category Detail Notes Category Not es Depression Screening PHQ-9 Little inte rest or pleasure in doing things: Not at all Feeling down, depressed, or hopeless: Se veral days Trouble falling or staying asleep, or sl eeping too much: Several days Feeling tired or having little energy: N ot at all Poor appetite or overeating: Not at all Feeling bad about yourself o r that you are a failure, or have let yourself or your family down: Not at all Trouble concentrating on thi ngs, such as reading the newspaper or watching television: Several days Moving or speaking so slowly that other people could have noticed; or the opposite, being so fidgety or restless that you have been moving around a lot more than usual: Not at all Thoughts that you would be b rebecca off or of hurting yourself in some way: Not at all Total Score: 3 Interpretation: Minimal Depression Psych F/U Changes since last visit?: States I'm ready to go, it's time , states not quite sure yet where her is going, I think [facility]. States since switching to the Invega 6 mg makes me feel weird' having spurts of anxiety , it's a weird feeling . States the Invega is helping with the hallucinations, but I do hear things still but I'm managing it . States he may want to switch back to the Zyprexa, I think it may be a better option . Previously was taking Zyprexa, Ill try it . Last time hearing a voice was earlier and the voice was saying please don't give up on me . Depression has been pretty bad, maybe it's today, it's hard to explain. I fluctuate . Having a hard time paying attention due to a flood of thoughts, I feel like I'm not able to be present in the moment, in my head . Looking forward to being more functioning . Anxiety been really bad but then calm spots where I feel good . Reports hydroxyzine somewhat helpful, I don't take it very often . States Remeron for sleep I wake up in the middle of the night . Estimates sleeping 4 hours a night. States doesn't want a referral for therapy right now, I don't know . Denies any SI/HI. Screening Smith Suicide Sev erity Rating Scale (LF) Do you want to initiate with: Screener form 1. Wish to be : Have you wished you were or wished you could go to sleep and not wake up?: No 2. Suicidal Thoughts: Have you actually had any thoughts of killing yourself?: No 6. Suicide Behavior Question: Have you ever done anything,started to do anything, or prepared to end your life?: No Do Not Use CSSRS Interpretation and Follow Up Plan CSSRS Interpretation and Follow Up Plan Moderate or High risk requires selection of a follow up plan: CSSRS No/Low: intervention not needed at this time Preventative Health and Wellness follow-up . Examination Category Sub-Category Detail Notes Category Not es Mental Status Exam SENSORIUM AND COGNITION Alert, A&OX 4 ATTENTION AND CONCENTRATION No deficits APPEARANCE Appropriate ATTITUDE AND BEHAVIOR Cooperative MEMORY Adequate EYE CONTACT Good AFFECT Restricted, sad MOOD Dysthymic, worried SPEECH QUANTITY Appropriate SPEECH QUALITY Spontaneous , soft v olume THOUGHT PROCESS Coherent and goal di rected THOUGHT CONTENT No evidence of delus ional content , No reports of paranoia MOTOR ACTIVITY , No abnormal moveme nts or tics noted SUICIDAL IDEATION Denies SI or thought s of self harm HOMICIDAL IDEATION Denies homicidal zenon ation or thoughts of aggression HALLUCINATIONS Reports AH of negati ve voice, does not appear to be responding to internal stimuli or seeing hallucinations in the room INSIGHT Adequate JUDGMENT Adequate FUND OF KNOWLEDGE Adequate ABILITY TO PARTICIPATE IN TREATMENT Adeq uate WILLINGNESS TO PARTICIPATE IN TREATMENT Adequate LANGUAGE Appropriate - WDL
--- OUTSIDE RECORDS SUMMARY | 2025-01-12 16:37 | XMS_ITS ---
Author Organization [facility] Address [address] [place] [address] Care Team Providers Care Material Yard Clerk Name Role Phone Ananya Fairchild Primary Care Provider Allergies Allergen (clinical drug ingredient) Drug/Non Drug Allergy documented on EMR Reaction Allergy Type Onset Date Status grapefruit (uncoded) hives Allergy Active REASON FOR VISIT ON MRU ext 0413 symptomatic Medications Medication SIG (Take, Route, Frequency, Duration) Notes Start Date End Date Status Paliperidone ER 3 MG 1 tablet in the mor bienevnido Orally Once a day for 30 day(s) 10/10/2023 Active busPIRone HCl 30 MG 1 tablet Orally Twic e a day for 30 days Active hydrOXYzine Pamoate 25 MG 2 capsules by mouth every 4 hour hours as needed Active busPIRone HCl 10 MG 2 tablets (20 mg) Or ally Twice a day for 30 days 09/19/2023 Active Paliperidone ER 6 MG 1 tablet Orally in the morning for 30 days 10/16/2023 Active Nicotine Lozenge 4mg 4 MG 1 lozenge ever y hour as needed Mouth/Throat up to 15 time(s) a day Active buPROPion HCl ER (XL) 300 MG 1 tablet in the morning Orally Once a day for 30 days Active Multivitamin - 1 tablet Orally Once a day Active buPROPion HCl ER (XL) 300 mg TAKE 1 TABL ET BY MOUTH EVERY MORNING for 16 Active Buprenorphine HCl-Naloxone HCl 8-2 mg DISSOLVE 1 FILM UNDER THE TONGUE TWICE A DAY for 14 10/16/2023 Active Mirtazapine 15 MG 1 tablet Orally at bedtime Active Social History Tobacco Use: Social History Observation Description Date Details (start date - stop date) Current Smoker NA - NA Sex Assigned At : Social History Observation Description Sex Assigned At Male Dont use, Tobacco Use/Smoking Question Answer Notes Are you a current smoker Additional Findings: Tobacco User Moderate cigar ette smoker (10-19 cigs/day) Encounters Encounter Location Date Provider Diagnosis Formerly [facility], [facility] [address] [place] [address] 10/16/2023 Josejyothi Gurinder Stimulant use disorder F15.90 ; Trauma and stressor-related disorder F43.9 ; Major depression in partial remission F32.4 ; ALANA (generalized anxiety disorder) F41.1 ; Hallucinations, unspecified R44.3 and Opioid use disorder F11.99 Assessments Encounter Date Diagnosis (ICD Code) Assessment Notes Treatment Notes Treatment Clinical Notes Section Notes 10/16/2023 Stimulant use disorder (ICD-10 - F15.90) Currently on CRU 10/16/2023 Trauma and stressor-related disorder (ICD-10 - F43.9) prescribed Remeron & Wellbutrin 10/16/2023 Major depression in partial remission (ICD-10 - F32.4) 10/16/2023 ALANA (generalized anxiety disorder) (ICD-10 - F41.1) 10/16/2023 Hallucinations, unspecified (ICD-10 - R44.3) 10/16/2023 Opioid use disorder (ICD-10 - F11.99) History: Psychiatric inpatient stays, last time Sept [...] male who presents for a psychiatric follow-up appointment, last seen on 10/10/23 and during this appt was continued on Wellbutrin 300 mg, continued on Buspar 20 mg BID, Hydroxyzine 25 mg PRN, discontinued on Zyprexa and Started on Invega 3 mg as well as restarted on Remeron for insomnia. Pt today reports worsening AH and increase in anxiety since switching to Invega, discussed increasing to 6 mg to help target these symptoms more specifically and pt is agreeable. Further, discussed option to increase Buspar, pt is agreeable - understands 60 mg is max dose of this medication. Discussed anxiety related sx may also be related to withdrawal from drug use and life stressors r/t housing worrying. Will attempt to clarify all diagnoses during future appts. Previously discussed during future appointment we can consider transitioning to another antidepressant, considering possibility Wellbutrin activating pt's anxiety - will continue to evaluate during future appts. Symptoms being further complicated by his worry of being homeless and grief related to recent deaths. Will continue to encourage starting individual therapy after treatment for anxiety coping skills along with hx of trauma. No acute safety concerns at the time of this appointment. Pt was provided an opportunity to ask questions and is in agreement with treatment plan. May self-administer medications or be administered own oral medications per [facility] protocols. Provided informed consent with understanding of side effects, adverse effects, risks and benefits as well as alternative treatments as previously discussed and with the above recommended medications & other aspects of the treatment program. Agrees to return sooner if symptoms worsen or suicidal or homicidal ideations occur. Plan Of Treatment Medication Medication Name Sig Start Date Stop Date Notes busPIRone HCl 30 MG 1 tablet Orally Twic e a day for 30 days hydrOXYzine Pamoate 25 MG 2 capsules by mouth every 4 hour hours as needed Paliperidone ER 6 MG 1 tablet Orally in the morning for 30 days 10/16/2023 buPROPion HCl ER (XL) 300 MG 1 tablet in the morning Orally Once a day for 30 days Mirtazapine 15 MG 1 tablet Orally at bedtime Treatment Notes Assessment Notes Stimulant use disorder Currently on [facility]U Trauma and stressor-related disorder pre scribed Remeron & Wellbutrin Opioid use disorder History: Psychiatric inpatient stays, last time Jul [...] male who presents for a psychiatric follow-up appointment, last seen on 10/10/23 and during this appt was continued on Wellbutrin 300 mg, continued on Buspar 20 mg BID, Hydroxyzine 25 mg PRN, discontinued on Zyprexa and Started on Invega 3 mg as well as restarted on Remeron for insomnia. Pt today reports worsening AH and increase in anxiety since switching to Invega, discussed increasing to 6 mg to help target these symptoms more specifically and pt is agreeable. Further, discussed option to increase Buspar, pt is agreeable - understands 60 mg is max dose of this medication. Discussed anxiety related sx may also be related to withdrawal from drug use and life stressors r/t housing worrying. Will attempt to clarify all diagnoses during future appts. Previously discussed during future appointment we can consider transitioning to another antidepressant, considering possibility Wellbutrin activating pt's anxiety - will continue to evaluate during future appts. Symptoms being further complicated by his worry of being homeless and grief related to recent deaths. Will continue to encourage starting individual therapy after treatment for anxiety coping skills along with hx of trauma. No acute safety concerns at the time of this appointment. Pt was provided an opportunity to ask questions and is in agreement with treatment plan. May self-administer medications or be administered own oral medications per [facility] protocols. Provided informed consent with understanding of side effects, adverse effects, risks and benefits as well as alternative treatments as previously discussed and with the above recommended medications & other aspects of the treatment program. Agrees to return sooner if symptoms worsen or suicidal or homicidal ideations occur. Next Appt Details Follow Up: 1 Week, Reason: m edication f/u Progress Notes * Naveen AGUIARDOB:1990 ( 33 yo M)Acc No.[id number]:10/16/2023 Patient: Naveen CASTANEDA Provider: JESU Hernandez :1990 A ge:33 Y S ex:Male Date:10/16/2023 Address:[facility], [place] [id number] Subjective: * Chief Complaints: * O N MRU ext [id number] symptomatic * HPI: P sych F/U: Changes since last visit?: S quyen has another week or so left on the MRU, I have 9 more days . States the past week have been rough, I really do want to leave. I'm waiting it out, not sure what my discharge date is is waiting to hear back about placement, speaking to someone about housing tomorrow. States the Invega not really doing that great of a job and is agreeable to increase Invega to 6 mg. Hearing voices I haven't been diagnosed with schizophrenia manic depressive delusional disorder . Has been feeling really depressed in his situation, I feel like I should be doing better as I'm off the streets, quit using drugs and I haven't been doing anything that's wrong .States anxiety has been through roof to be honest with you not sure if the anxiety will be less after hearing news tomorrow. In the past week hearing voices and is not sure, is having difficulty concentrating . Having some dififculties with sleep. Denies any thoughts SI. D epression Screening: PHQ-9 L ittle interest or pleasure in doing things?Nearly every day F eeling down, depressed, or hopeless S everal days T rouble falling or staying asleep, or sleeping too much N ot at all F eeling tired or having little energy N ot at all P oor appetite or overeating M ore than half the days F eeling bad about yourself or that you are a failure, or have let yourself or your family down N ot at all T rouble concentrating on things, such as reading the newspaper or watching television M ore than half the days M oving or speaking so slowly that other people could have noticed; or the opposite, being so fidgety or restless that you have been moving around a lot more than usual N ot at all T houghts that you would be better off or of hurting yourself in some way N ot at all T otal Score 8 I nterpretation M ild Depression S creening: Tyler Suicide Severity Rating Scale (LF) D o [...] Status Reviewed on: 0 02/27/2023 Leisure: Plays [employer], go to museums, festivals, likes walking in natures, interested in fashion. T obacco Use: T obacco Use/Smoking A re you a c urrent smoker A dditional Findings: Tobacco User M oderate cigarette smoker (10-19 cigs/day) * Medications: T akingNicotine Lozenge 4mg 4 MG Lozenge 1 lozenge every hour as needed Mouth/Throat up to 15 time(s) a day Multivitamin - Tablet 1 tablet Orally Once a day busPIRone HCl 10 MG Tablet 2 tablets (20 mg) Orally Twice a day hydrOXYzine Pamoate 25 MG Capsule 2 capsules by mouth every 4 hour hours as needed Paliperidone ER 3 MG Tablet Extended Release 24 Hour 1 tablet in the morning Orally Once a day buPROPion HCl ER (XL) 300 mg Tablet Extended Release 24 Hour TAKE 1 TABLET BY MOUTH EVERY MORNING Mirtazapine 15 MG Tablet 1 tablet at bedtime Orally Once a day Buprenorphine HCl-Naloxone HCl 8-2 mg Film DISSOLVE 1 FILM UNDER THE TONGUE TWICE A DAY Taking Nicotine Lozenge 4mg 4 MG Lozenge 1 lozenge every hour as needed Mouth/Throat up to 15 time(s) a day Taking Multivitamin - Tablet 1 tablet Orally Once a day Taking busPIRone HCl 10 MG Tablet 2 tablets (20 mg) Orally Twice a day Taking hydrOXYzine Pamoate 25 MG Capsule 2 capsules by mouth every 4 hour hours as needed Taking Paliperidone ER 3 MG Tablet Extended Release 24 Hour 1 tablet in the morning Orally Once a day Taking buPROPion HCl ER (XL) 300 mg Tablet Extended Release 24 Hour TAKE 1 TABLET BY MOUTH EVERY MORNING Taking Mirtazapine 15 MG Tablet 1 tablet at bedtime Orally Once a day Taking Buprenorphine HCl-Naloxone HCl 8-2 mg Film DISSOLVE 1 FILM UNDER THE TONGUE TWICE A DAY DiscontinuedOLANZapine 5 MG Tablet 1 tablet Orally twice a day busPIRone HCl 10 MG Tablet 1 tablet Orally Twice a day Medication List reviewed and reconciled with the patientDiscontinued OLANZapine 5 MG Tablet 1 tablet Orally twice a day Discontinued busPIRone HCl 10 MG Tablet 1 tablet Orally Twice a day Medication List reviewed and reconciled with the patient * Allergies: g rapefruit: hives - Criticality Unknownno[Allergies Verified] Objective: * Vitals: I nitials: ly, Pain scale:0. * Examination: M ental Status Exam: SENSORIUM AND COGNITION A lert, A&OX4. ATTENTION AND CONCENTRATION N o deficits. APPEARANCE P ana interview - unable to determine appearance. ATTITUDE AND BEHAVIOR C ooperative , Pleasant. MEMORY A dequate. EYE CONTACT P ana interview. AFFECT P ana interview - TANIKA. MOOD D ysthymic, worried. SPEECH QUANTITY A ppropriate. SPEECH QUALITY S pontaneous , soft v olume. THOUGHT PROCESS C oherent and goal directed. THOUGHT CONTENT No evidence of delusional content , No reports of paranoia. LANGUAGE A ppropriate - WDL. MOTOR ACTIVITY P ana interview, TANIKA. SUICIDAL IDEATION D enies SI or thoughts of self harm. HOMICIDAL IDEATION D enies homicidal ideation or thoughts of aggression. HALLUCINATIONS D enies Auditory, Visual and Tactile hallucinations. INSIGHT A dequate. JUDGMENT A dequate. FUND [...] H allucinations, unspecified - R44.3 6 . Opioid use disorder - F11.99 Plan: * Treatment: 2. T rauma and stressor-related disorder Notes: prescribed Remeron & Wellbutrin 3. M ajor depression in partial remission Continue buPROPion HCl ER (XL) Tablet Extended Release 24 Hour, 300 MG, 1 tablet in the morning, Orally, Once a day, 30 days, 30 Tablet, Refills 0; C ontinue Mirtazapine Tablet, 15 MG, 1 tablet, Orally, at bedtime. 4. G AD (generalized anxiety disorder) Increase busPIRone HCl Tablet, 30 MG, 1 tablet, Orally, Twice a day, 30 days, 60 Tablet, Refills 0;?Continue hydrOXYzine Pamoate Capsule, 25 MG, 2 capsules, by mouth, every 4 hour hours as needed. 5. H allucinations, unspecified Increase Paliperidone ER Tablet Extended Release 24 Hour, 6 MG, 1 tablet, Orally, in the morning, 30 days, 30, Refills 0. 6. O pioid use disorder Notes:History:Psychiatric inpatient stays, last time Jul for AH. [...] male who presents for a psychiatric follow-up appointment,last seen on 10/10/23 and during this appt was continued on Wellbutrin 300 mg, continued on Buspar 20 mg BID, Hydroxyzine 25 mg PRN, discontinued on Zyprexa and Started on Invega 3 mg as well as restarted on Remeron for insomnia. Pt today reports worsening AH and increase in anxiety since switching to Invega, discussed increasing to 6 mg to help target these symptoms more specifically and pt is agreeable. Further, discussed option to increase Buspar, pt is agreeable - understands 60 mg is max dose of this medication. Discussed anxiety related sx may also be related to withdrawal from drug use and life stressors r/t housing worrying. Will attempt to clarify all diagnoses during future appts. Previously discussed during future appointment we can consider transitioning to another antidepressant, considering possibility Wellbutrin activating pt's anxiety - will continue to evaluate during future appts. Symptoms being further complicated by his worry of being homeless and grief related to recent deaths. Will continue to encourage starting individual therapy after treatment for anxiety coping skills along with hx of trauma. No acute safety concerns at the time of this appointment. Pt was provided an opportunity to ask questions and is in agreement with treatment plan. May self-administer medications didier administered own oral medications per [facility] protocols. Provided informedconsent with understanding of side [...] ONCOMPLIANT A lcohol use screening - 1 12/17/2022 - * Procedure Codes: * Follow Up: 1 Week (Reason: medication f/u) * * TRUCTION ADMINISTRATIVE ASSISTANT Sign off status: Completed true * Provider: Aidan Fairchild, [facility] Date: 12/17/2022 Generated for Narendra goznalez/Deisy/Kyle on: 0 01/12/2025 04:37 PM CDT History and Physical Notes * HPI (History of Present Illness) Category Sub-Category Detail Notes Category Not es Depression Screening PHQ-9 Little inte rest or pleasure in doing things: Nearly every day Feeling down, depressed, or hopeless: Se veral days Trouble falling or staying asleep, or sl eeping too much: Not at all Feeling tired or having little energy: N ot at all Poor appetite or overeating: More than h ranjeet the days Feeling bad about yourself o r that you are a failure, or have let yourself or your family down: Not at all Trouble concentrating on thi ngs, such as reading the newspaper or watching television: More than half the days Moving or speaking so slowly that other people could have noticed; or the opposite, being so fidgety or restless that you have been moving around a lot more than usual: Not at all Thoughts that you would be b rebecca off or of hurting yourself in some way: Not at all Total Score: 8 Interpretation: Mild Depression Psych F/U Changes since last visit?: State s has another week or so left on the MRU, I have 9 more days . States the past week have been rough, I really do want to leave. I'm waiting it out, not sure what my discharge date is is waiting to hear back about placement, speaking to someone about housing tomorrow. States the Invega not really doing that great of a job and is agreeable to increase Invega to 6 mg. Hearing voices I haven't been diagnosed with schizophrenia manic depressive delusional disorder . Has been feeling really depressed in his situation, I feel like I should be doing better as I'm off the streets, quit using drugs and I haven't been doing anything that's wrong . States anxiety has been through roof to be honest with you not sure if the anxiety will be less after hearing news tomorrow. In the past week hearing voices and is not sure, is having difficulty concentrating . Having some dififculties with sleep. Denies any thoughts SI Screening Tyler Suicide Sev erity Rating Scale (LF) Do [...] 4 ATTENTION AND CONCENTRATION No deficits APPEARANCE Phone interview - un able to determine appearance ATTITUDE AND BEHAVIOR Cooperative , Plea tali MEMORY Adequate EYE CONTACT Phone interview AFFECT Phone interview - UT A MOOD Dysthymic, worried SPEECH QUANTITY Appropriate SPEECH QUALITY Spontaneous , soft v olume THOUGHT PROCESS Coherent and goal di rected THOUGHT CONTENT No evidence of delus ional content , No reports of paranoia MOTOR ACTIVITY Phone interview, TANIKA SUICIDAL IDEATION Denies SI or thought s of self harm HOMICIDAL IDEATION Denies homicidal zenon ation or thoughts of aggression HALLUCINATIONS Denies Auditory, Vis ual and Tactile hallucinations INSIGHT Adequate JUDGMENT Adequate FUND OF KNOWLEDGE Adequate ABILITY TO PARTICIPATE IN TREATMENT Adeq uate WILLINGNESS TO PARTICIPATE IN TREATMENT Adequate LANGUAGE Appropriate - WDL
--- OUTSIDE RECORDS SUMMARY | 2025-01-12 16:37 | XMS_ITS ---
Author Organization Replaced by [facility] Address [address] [place] [address] Care Team Providers Care Delinquent Tax Collector Name Role Phone Ananya Fairchild Primary Care Provider [phone] REASON FOR VISIT requesting to return to the CRU Social History Sex Assigned At : Social History Observation Description Sex Assigned At Male Encounters Encounter Location Date Provider Diagnosis [facility] [address] [place] [address] 10/24/2023 Ananya Fairchild Plan Of Treatment No Information Progress Notes * Naveen AGUIARDOB:1990 ( 33 yo M)Acc No.[id number]:10/24/2023 Patient: Abram RUIZ Naveen :1990 A ge:33 Y S ex:Male Address:[place] [id number] * true * Date: Generated for Luisi carlos/Deisy/eTransmitting on: 0 01/12/2025 04:36 PM CDT
--- OUTSIDE RECORDS SUMMARY | 2025-01-12 16:42 | XMS_ITS | CONTINUITY OF CARE DOCUMENT ---
Author Name jose garcia Address Unknown Organization [facility] Address [address] [place] [address] [address] [place] [address] Phone [phone] Care Team Providers Care Business Database Analyst Name Role Phone Luis Mclaughlin MD Unavailable Luis Mclaughlin MD Unavailable [phone] INSURANCE PROVIDERS Payer name Policy type / Coverage type [place] [employer] party ID [facility] [id number]
== END 2025-01-12 15:26 | disposition home or self-care (01) ==
PROVIDERS: Emergency Provider Registered Nurse
DX: J06.9 Acute upper respiratory infection, unspecified (principal); K04.7 Periapical abscess without sinus; F17.210 Nicotine dependence, cigarettes, uncomplicated
CPT/HCPCS: 99213; G0463

== ENCOUNTER 2025-05-09 09:27 | Emergency (ER) | payer MEDICARE, MEDICAID, SELFPAY ==
--- OUTSIDE RECORDS SUMMARY | 2025-05-09 09:29 | XMS_ITS | Patient Health Record ---
Author Organization [facility] Address [address] [place] [address] Care Team Providers Care Roll Grinder Name Role Phone Ananya Fairchild Primary Care Provider [phone] Allergies Allergen (clinical drug ingredient) Drug/Non Drug Allergy documented on EMR Reaction Allergy Type Onset Date Status grapefruit (uncoded) hives Allergy Active Reason For Referral No Information Medications Medication SIG (Take, Route, Frequency, Duration) Notes Start Date End Date Status buPROPion HCl ER (XL) 300 MG 1 tablet in the morning Orally Once a day; Duration: 30 days Active OLANZapine 10 MG 0.5 tablet x 7 days then 1 tablet Orally Once a day; Duration: 30 days 10/23/2023 Active Multivitamin - 1 tablet Orally Once a day Active Nicotine Lozenge 4mg 4 MG 1 lozenge ever y hour as needed Mouth/Throat up to 15 time(s) a day Active Mirtazapine 15 MG 1 tablet Orally at bedtime; Duration: 30 days Active hydrOXYzine Pamoate 50 MG 1 capsule by m outh twice a day as needed; Duration: 15 days Active busPIRone HCl 30 MG 1 tablet Orally Twic e a day; Duration: 30 days Active Buprenorphine HCl-Naloxone HCl 8-2 mg DISSOLVE 1 FILM UNDER THE TONGUE TWICE A DAY; Duration: 14 10/16/2023 Active Social History Tobacco Use: [...] W/U Status Risk Notes Problem Tobacco user (226475533) Nicotine dependence, unspecified, uncomplicated (F17.200) Active confirmed Problem Anxiety disorder (805464623) Anxiety disorder, unspecified (F41.9) 09/17/20 Active confirmed Problem Hallucinations (9181988) Hallucinations, unspecified (R44.3) 09/17/20 Active confirmed Problem Bipolar 1 disorder (613688116) Bipolar 1 disorder (F31.9) 09/17/20 Active confirmed Problem Generalized anxiety disorder (88910081) ALANA (generalized anxiety disorder) (F41.1) Active confirmed Problem Major depression in partial remission (75933560) Major depression in partial remission (F32.4) Active confirmed Problem Constipation (94566322) Constipation (K59.00) Active confirmed Problem Insomnia due to mental disorder (09726647) Insomnia due to mental disorder (F51.05) 10/23/20 Active confirmed Problem Stimulant use disorder (8964729145) Stimulant use disorder (F15.90) 09/17/20 Active confirmed Problem Adjustment disorder (08851121) Trauma and stressor-related disorder (F43.9) 08/06/20 Active confirmed Problem Tobacco use (410719384) Tobacco use disorder (F17.200) Active confirmed Problem Opioid use disorder (3133947866) Opioid use disorder (F11.99) Active confirmed Problem Intravenous drug user (603060441) Intravenous drug user (F19.90) Active confirmed History of IV drug in past 12 months - not recent Problem Cannabis use disorder (0080816336) Cannabis use disorder (F12.90) 08/06/20 Active confirmed [...] Insured Coverage Start Date Coverage End Date [employer] [address] [place] [address] [id number] Naveen Mcfadden Self - patient is the insured 4 [facility] [address] [place] [address] [id number] Naveen Mcfadden Self - patient is the insured [address] [place] [address] [id number] Naveen Mcfadden Self - patient is the insured 3 3 [facility] [address] [place] [address] [id number] Naveen Mcfadden Self - patient is the insured 4 Medical (General) History Medical History History ICD Code ADD (attention deficit disorder) F90.0 Depression F32.9 Psychosis F29 Anxiety F41.9 Concussion S06.0X9A Surgical History Surgery Date(Month/Year) Hospitalization History Reason Date(Month/Year) [facility] for panic attacks 09/2023 hearing voices 07/2023 mental health concerns 02/2023 suicide attempt 2004 and 2010 foot issues inpatient stay 09/2023
[2025-05-09 09:30] VITALS: BP 137/75; PULSE 94; RESP 20; TEMP 36.6; O2SAT 99
--- NOTE | 2025-05-09 09:42 | ED_ITS ---
HPI - URI/Sore Throat General Chief Complaint: Upper Respiratory Infection Stated Complaint: Fever/Chills/Cough Time Seen by Provider: 05/09/25 09:28 Patient presents to [facility] with complaints of right ear pain, nasal congestion, nasal drainage, scratchy throat, headache, cough, chest congestion, shortness of breath, and fatigue with chills that began about 3 days ago. Patient reports he does have an albuterol inhaler that he has been using with some relief of the shortness of breath. Also using ibuprofen with some relief o f pain. No known sick contacts. Denies known fever, dizziness, wheezing, nausea, vomiting, diarrhea. Related Data Allergies Allergy/AdvReac Type Severity Reaction Status Date / Time No Known Allergies Allergy Verified 01/12/25 15:02 Review of Systems Constitutional: Constitutional: Reports as per HPI, Reports chills, Reports fatigue, Denies fever(s) and Denies weakness Eyes: Eyes: Reports no additional eye complaints ENT: Reports as per HPI, Denies dysphagia, Denies vertigo, Denies dizziness, Denies epistaxis, Reports nasal congestion and Reports sore throat Comments: right ear pain Cardiovascular: Cardiovascular: Reports as per HPI, Denies chest pain, Denies rapid heart rate and Denies radiating jaw, neck or arm pain Respiratory: Respiratory: Reports as per HPI, Reports chest congestion, Reports cough, Reports dyspnea and Denies wheezing Gastrointestinal: Gastrointestinal: Reports no additional gastrointestinal complaints Genitourinary: Genitourinary: Reports no additional male genitourinary complaints Musculoskeletal: Musculoskeletal: Reports no additional musculoskeletal complaints Integumentary/Breasts: Skin/Breast: Reports as per HPI, Denies erythema and Denies rash Neurologic: Reports as per HPI, Denies vertigo, Denies dizziness, Denies syncope, Reports headache(s), Denies numbness and Denies weakness Psychiatric: Psychiatric: Reports no additional psychiatric complaints Endocrine: Endocrine: Reports no additional endocrine complaints Hematologic/Lymphatic: Hematologic/Lymphatic: Reports no additional hematologic/lymphatic complaints Allergic/Immunologic: Allergic/Immunologic: Reports as per HPI, Denies lip swelling, Denies throat swelling, Denies tongue swelling and Denies wheezing Comments: seasonal allergies PMFSH Past Medical History Medical History (Updated 05/09/25 @ 09:47 by BRIDGETTE Perla-C) Psychiatric care Poor dentition Constipation Suicide attempt Depression Kidney stone Anxiety Surgical History Surgical History No significant past surgical history Family History Family History Mother Depression Social History Social History (Updated 01/15/25 @ 16:50 by Mable Wiggins NP) Smoking packs per day: 0.75 Smoking cigarettes per day: 15.0 Years smoked: 15 Smoking pack-years: 11.25 Smoking status: Current every day smoker Tobacco type: cigarettes Second hand tobacco smoke exposure: Yes Alcohol intake: never Substance use: current Substance use type: marijuana Other substance usage details: former methamphetamine Living arrangements: with family Occupation/Education: unemployed Gender identity (if verbalized by the patient): Male Exam Const: General: healthy appearing Nutritional Appearance: well nourished Orientation/consciousness: patient oriented x3 Limitations: no limitations Other: obviously fatigued HENMT: Head: normal to inspection Ears: external ears normal and TM's normal bilaterally Face/Nose/Sinus: Normal external nose present, nares abnormal ( minimal erythema and edema noted) and Nasal discharge present clear Face and sinus: normal facial exam and sinuses nontender Mouth: Yes Normal oral and palatal mucosa present Throat: posterior oropharynx abnormal ( diffuse erythema with minimal edema no exudate) Neck: Neck: normal visual inspection and no lymphadenopathy Resp: Effort & Inspection: normal respiratory effort Auscultation: no crackles, no rales, no rhonchi, no wheezes, breath sounds present and diminished lung sounds diffuse Cardio: Rate: regular rate Rhythm: regular rhythm Skin: General skin exam: normal color Rashes: no rashes Wounds: no wounds Neuro: General: patient oriented x3 Speech: normal speech Gait exam (Neuro): Normal gait present Psych: Mental Status: mental status grossly normal Affect: normal affect Attitude: cooperative Course Course Level of Care: Express Care Visit Vital Signs Vital signs: Vital Signs Temperature 97.9 F 05/09/25 09:30 Pulse Rate 94 05/09/25 09:30 Respiratory Rate 20 05/09/25 09:30 Blood Pressure 137/75 05/09/25 09:30 Pulse Oximetry 99 05/09/25 09:30 Oxygen Delivery Room Air 05/09/25 09:30 Temperature 97.9 F 05/09/25 09:30 Pulse Rate 94 05/09/25 09:30 Respiratory Rate 20 05/09/25 09:30 Blood Pressure 137/75 05/09/25 09:30 Pulse Oximetry 99 05/09/25 09:30 Oxygen Delivery Room Air 05/09/25 09:30 MDM - URI/Sore Throat MDM Narrative Medical decision making narrative: declines any need for testing. Likely viral illness in nature. Educated patient on [id number] medication to take with medications sending to the pharmacy. Discharge instructions reviewed with patient, as well as provided in writing per nursing staff. The instructions also include specific and strict return/GO TO THE ER as well as f/u information. All questions have been answered, and the patient deny any further questions with discharge and discharge plan. Differential Diagnosis Differential diagnosis: Likely upper respiratory infection, otitis media, sinusitis, bronchitis and pharyngitis Medical Records Attestation: I reviewed the patient's medical records. Discharge Plan Discharge Clinical Impression: Upper respiratory infection, Bronchitis Patient Disposition: Home Condition: Stable Instructions: Antibiotic Form, Upper Respiratory Infection (ED), Acute Bronchitis (ED), Postnasal Drip (DC) Additional Instructions: Viral illness may last between 7-12days; antibiotic is NOT recommended at this time. Recommend antihistamine such as Benadryl at night time and Claritin/Zyrtec/Al legra during the day. Also using steroid nasal spray like Flonase can help with symptoms and congestion. Using sudafed for significant congestion will also give some relief. Cough syrup may cause drowsiness; avoid driving or take it at night time. Use inhaler as needed for cough, wheezing, shortness of breath or chest tightness. Also, recommend symptomatic treatment includes: rest, fluids, increase humidity of the air at home. Recommend Acetaminophen or nonsteroidal anti-inflammatory agents(NSAIDs) as directed in the bottle to reduce fever and/pain/headache. Avoid smoking/second-hand smoke. Limit visits to areas with large crowds. Frequent hand washing or hand unit control clerk is one of the best ways to prevent spread of infection. Please schedule a followup visit with your personal physician for further evaluation and treatment within 3-5days. Including recheck and discussion of your blood pressure. If your symptoms persist, change or worsen significantly before you can contact your personal physician then please, without delay, go to the emergency department for further evaluation. Patient Language: Romansh Prescriptions: New benzonatate 200 mg capsule 200 mg PO TID PRN (Reason: cough) Qty: 30 0RF methylprednisolone [Medrol (Simeon)] 4 mg tablets,dose pack See Rx Instructions .ROUTE .COMPLEX Qty: 21 0RF Rx Instructions: for 6 days albuterol sulfate [Ventolin HFA] 90 mcg/actuation HFA aerosol inhaler 2 puff inhalation QID PRN (Reason: shortness of breath or wheezing) Qty: 8.5 0RF No Action ibuprofen 600 mg tablet 600 mg PO TID PRN (Reason: fever or pain) Qty: 30 0RF Follow-up/Referrals: Jigna,Grabiel Triana MD [Primary Care Provider] - Stand Alone Forms: Work/School Release IP
== END 2025-05-09 09:57 | disposition home or self-care (01) ==
PROVIDERS: Emergency Provider Nurse Practitioner Family; PCP Internal Medicine
DX: J06.9 Acute upper respiratory infection, unspecified (principal); J40 Bronchitis, not specified as acute or chronic; F17.210 Nicotine dependence, cigarettes, uncomplicated
CPT/HCPCS: 99213; G0463